=== PATIENT | female | born 1955 | race Caucasian/White ===

== ENCOUNTER 2016-09-02 18:00 | Emergency (ER) | payer MEDICAID, OTHER ==
[2016-09-02] MEDS ORDERED: Sodium Chloride 0.9% 5 ML Syringe FLUSH PRN (18:31)
--- NOTE | 2016-09-02 18:38 | EDM.PDOC ---
ED HISTORY OF PRESENT ILLNESS - General Chief Complaint: Respiratory Problem Stated Complaint: FELL Time Seen by Provider: 09/02/16 18:25 Source of Information: Reports: Patient, EMS History Limitations: Reports: No limitations - History of Present Illness INITIAL COMMENTS - FREE TEXT/NARRATIVE: 61 YO WF presents to ER by EMS after near syncopal episode at home today. Pt reports she has been feeling very tired lately and has had some increasing shortness of breath. Pt denies chest pain, headache or head injury. Pt reports swelling to bilateral lower extremities. Pt with history of peripheral edema and NIDDM- BS on scene was 180's Symptom Onset Date: 09/02/16 Timing/Duration: Reports: Day(s):, Unsure Severity: moderate Improves with: Reports: Movement Worsens with: Reports: Breathing Associated Symptoms (General): Reports: cough, malaise, shortness of breath, syncope, weakness. Denies: chest pain, fever/chills, headaches, nausea/vomiting , rash, seizure - Related Data Allergies/ADRs: Allergies Allergy/AdvReac Type Severity Reaction Status Date / Time Penicillins Allergy Rash Verified 09/02/16 18:36 Home Meds: Home Meds Citalopram Hydrobromide [Citalopram HBr] 20 mg PO DAILY 09/02/16 [History] Diclofenac Sodium [IJD: Diclofenac Sodium] 75 mg PO .TWICE DAILY W MEALS [History] Furosemide [Lasix] 20 mg PO ASDIRECTED 09/02/16 [History] Ibuprofen [Advil Liqui-Gels] 800 mg PO BEDTIME 09/02/16 [History] Iron 65 Plus Vitamin C 125 1 tab PO DAILY 09/02/16 [History] LORazepam 1 mg PO BEDTIME 09/02/16 [History] Omeprazole [Omeprazole] 20 mg PO ACBREAKFAST 09/02/16 [History] Pregabalin [Lyrica] 200 mg PO TID 09/02/16 [History] metFORMIN HCl [Metformin HCl] 500 mg PO BIDMEALS 09/02/16 [History] Past Medical History - Past Health History Medical/Surgical History: Denies Medical/Surgical History Social & Family History - Tobacco Use Smoking Status *Q: Unknown Ever Smoked - Living Situation & Occupation Living situation: Reports: , alone Occupation: disabled ED ROS GENERAL - Review of Systems Review Of Systems: See Below Constitutional: Reports: no symptoms HEENT: Reports: No symptoms Respiratory: Reports: Shortness of Breath Cardiovascular: Reports: Dyspnea on exertion, Edema, PND, Syncope Endocrine: Reports: fatigue GI/Abdominal: Reports: No symptoms : Reports: no symptoms Musculoskeletal: Reports: back pain Neurological: Reports: No Symptoms Psychiatric: Reports: No symptoms Hematologic/Lymphatic: Reports: no symptoms Immunologic: Reports: no symptoms ED EXAM, GENERAL - Physical Exam Exam: See Below Exam Limited By: No limitations General Appearance: alert, WD/WN, lethargic Eye Exam: bilateral eye: EOMI, PERRL Ears: normal external exam, normal canal, hearing grossly normal, normal TMs Nose: normal inspection, normal mucosa, no blood Throat/Mouth: Normal inspection, Normal lips, Normal teeth, Normal gums, Normal oropharynx, Normal voice, No airway compromise Head: atraumatic, normocephalic Neck: normal inspection, supple, non-tender, full range of motion Respiratory/Chest: no respiratory distress, no accessory muscle use, decreased breath sounds, rales Cardiovascular: normal peripheral pulses, regular rate, rhythm. No: no edema GI/Abdominal: normal bowel sounds, soft, non tender, no organomegaly, no distention, no abnormal bruit, no mass Extremities: pedal edema Neurological: alert, oriented, CN II-XII intact, normal cognition, normal gait, normal reflexes, no motor/sensory deficits Psychiatric: normal affect, normal mood Skin Exam: Warm, Dry, Intact, Normal color, No rash Lymphatic: no adenopathy EKG INTERPRETATION EKG Date: 09/02/16 Time: 18:40 Rhythm: NSR Rate (beats/min): 95 [place]: RAD-right axis deviation P-wave: present QRS: RBBB ST-T: normal QT: normal Course - Vital Signs Last Recorded V/S: Last Vital Signs Temp 36.4 C 09/02/16 18:25 Pulse 97 09/02/16 18:25 Resp 20 09/02/16 18:25 BP 119/78 09/02/16 18:25 Pulse Ox 64 L 09/02/16 18:25 - Orders/Labs/Meds Orders: Active Orders 24 hr Category Date Time Status EKG Documentation Completion [RC] ASDIRECTED Care 09/02/16 18:31 Active Peripheral IV Care [RC] . DIRECTED Care 09/02/16 18:31 Active Chest 1V Frontal [CR] Stat Exams 09/02/16 18:31 Taken Head wo Cont [CT] Stat Exams 09/02/16 20:17 Taken Nitroglycerin [Nitro-Dur 0.4 MG/Hr] Med 09/02/16 19:15 Active 0.4 mg TRDERM DAILY Sodium Chloride 0.9% [Syrex Flush] Med 09/02/16 18:31 Active 5 ml FLUSH Q8HR PRN Peripheral IV Insertion Adult [OM.PC] Routine Oth 09/02/16 18:31 Ordered EKG 12 Lead [EK] Routine Ther 09/02/16 18:31 Ordered Medication Orders Nitroglycerin (Nitro-Dur 0.4 Mg/Hr) 0.4 mg TRDERM DAILY ERNESTO Last Admin: 09/02/16 19:57 Dose: Sodium Chloride (Syrex Flush) 5 ml FLUSH Q8HR PRN PRN Reason: Keep Vein Open Labs: Laboratory Tests 09/02/16 09/02/16 09/02/16 Range/Units 18:25 18:25 18:25 WBC 9.1 (5.0-10.0) 10^3/uL RBC 5.50 (3.80-5.50) 10^6/uL Hgb 17.3 H (12.0-16.0) g/dL Hct 52.9 H (37.0-47.0) % MCV 96.2 H (82.0-92.0) fL MCH 31.4 H (27.0-31.0) pg MCHC 32.7 (32.0-36.0) g/dL RDW 15.7 H (11.5-14.5) % Plt Count 112 L (150-300) 10^3/uL MPV 10.0 (7.4-10.4) fL Neut % (Auto) 83.7 H (50.0-70.0) % Lymph % (Auto) 8.3 L (20.0-40.0) % [place] % (Auto) 7.4 (2.0-8.0) % Eos % (Auto) 0.6 L (1.0-3.0) % Baso % (Auto) 0.0 (0.0-1.0) % Neut # (Auto) 7.5 H (2.5-7.0) 10^3/uL Lymph # (Auto) 0.8 L (1.0-4.0) 10^3/uL [place] # (Auto) 0.7 (0.1-0.8) 10^3/uL Eos # (Auto) 0.1 (0.1-0.3) 10^3/uL Baso # (Auto) 0.0 (0.0-0.1) 10^3/uL PT 12.1 H (8.9-11.4) SEC INR 1.2 H (0.9-1.1) APTT 23.0 (20.8-31.2) SEC Sodium 142 (136-145) mmol/L Potassium 5.0 (3.3-5.3) mmol/L Chloride 103 (98-115) mmol/L Carbon Dioxide 31.5 (21.0-32.0) mmol/L BUN 26 H (6-25) mg/dL Creatinine 1.11 (0.51-1.17) mg/dL Est Cr Clr Drug Dosing 45.08 mL/min Estimated GFR (MDRD) 50 mL/min Glucose 136 H (70-110) mg/dL Calcium 10.0 (8.7-10.3) mg/dL Total Bilirubin 2.0 H (0.2-1.0) mg/dL AST 146 H (15-37) U/L ALT 90 H (12-78) U/L Alkaline Phosphatase 113 (46-116) IU/L Creatine Kinase 255 (26-276) U/L CK-MB (CK-2) 14.60 H* (0.00-4.30) ng/mL Troponin I 0.82 H* (0.00-0.070) ng/mL B-Natriuretic Peptide 660 H (0-100) pg/mL Total Protein 7.3 (6.4-8.2) g/dL Albumin 3.71 (3.00-4.80) g/dL Meds: Medications Generic Name Dose Route Start Last Admin Trade Name Freq PRN Reason Stop Dose Admin Nitroglycerin 0.4 mg 09/02/16 19:15 09/02/16 19:57 Nitro-Dur 0.4 Mg/Hr TRDERM Not Given DAILY ERNESTO Sodium Chloride 5 ml 09/02/16 18:31 Syrex Flush FLUSH Q8HR PRN Keep Vein Open Discontinued Medications Generic Name Dose Route Start Last Admin Trade Name Freq PRN Reason Stop Dose Admin Aspirin 324 mg 09/02/16 19:11 09/02/16 19:25 Aspirin PO 09/02/16 19:12 324 mg ONETIME ONE Administration Nitroglycerin 1 gm 09/02/16 19:25 09/02/16 19:28 Nitro-Bid 2% TOP 09/02/16 19:26 1 gm ONETIME ONE Administration - Radiology Interpretation Free Text/Narrative:: CXR- NAD; CM Departure - Departure Time of Disposition: 20:01 Disposition: DC/Tfer to Acute Hospital 02 Condition: critical Clinical Impression: Hypoxia Acute myocardial infarction Qualifiers: Myocardial infarction ST status: non-ST elevation myocardial infarction Qualified Code(s): I21.4 - Non-ST elevation (NSTEMI) myocardial infarction Pulmonary edema Qualifiers: Chronicity: acute Qualified Code(s): J81.0 - Acute pulmonary edema Referrals: Christopher Red PA-C [Primary Care Provider] - Forms: Interfacility Transfer EMTALA - My Orders Last 24 Hours: My Active Orders 09/02/16 18:31 EKG Documentation Completion [RC] ASDIRECTED Peripheral IV Care [RC] . DIRECTED Chest 1V Frontal [CR] Stat Sodium Chloride 0.9% [Syrex Flush] 5 ml FLUSH Q8HR PRN Peripheral IV Insertion Adult [OM.PC] Routine EKG 12 Lead [EK] Routine 09/02/16 19:15 Nitroglycerin [Nitro-Dur 0.4 MG/Hr] 0.4 mg TRDERM DAILY 09/02/16 20:17 Head wo Cont [CT] Stat - Assessment/Plan Last 24 Hours: My Active Orders 09/02/16 18:31 EKG Documentation Completion [RC] ASDIRECTED Peripheral IV Care [RC] . DIRECTED Chest 1V Frontal [CR] Stat Sodium Chloride 0.9% [Syrex Flush] 5 ml FLUSH Q8HR PRN Peripheral IV Insertion Adult [OM.PC] Routine EKG 12 Lead [EK] Routine 09/02/16 19:15 Nitroglycerin [Nitro-Dur 0.4 MG/Hr] 0.4 mg TRDERM DAILY 09/02/16 20:17 Head wo Cont [CT] Stat Assessment:: 1. hypoxia 2. NSTEMI 3. pulmonary edema 4. NIDDM 5. Tobacco use Plan: 1. discussed case with Dr Ramirez- cardiology who accepted pt for transfer for further evaluation and treatment 2. transfer by ALS ground to [facility]
[2016-09-02] MEDS ORDERED: Aspirin 81 MG Tab.Chew PO ONE (19:11)
[2016-09-02] MEDS ORDERED: Nitroglycerin 2% Oint 1 GM UD Packet TOP ONE (19:25)
[2016-09-02] MEDS: Nitroglycerin 0.4 MG/HR Transdermal Patch TRDERM SCH ×2 (19:28→19:57)
[2016-09-03 00:17] VITALS: BP 125/99
== END 2016-09-02 20:40 ==
LOC: KA.ED 18:00
DX: I21.4 Non-ST elevation (NSTEMI) myocardial infarction (principal); R09.02 Hypoxemia; J81.0 Acute pulmonary edema; Z88.0 Allergy status to penicillin; Z79.899 Other long term (current) drug therapy
CPT/HCPCS: 36415; 70450; 71010; 80053; 82550; 82553; 83880; 84484; 85025; 85610; 85730; 99285; A9270; 93005

== ENCOUNTER 2017-01-08 10:31 | Inpatient (IN) | payer MEDICAID ==
--- NOTE | 2017-01-08 11:24 | EDM.PDOC ---
ED HPI GENERAL MEDICAL PROBLEM - General Chief Complaint: General Stated Complaint: WEAKNESS Time Seen by Provider: 01/08/17 11:12 Source of Information: Reports: Patient History Limitations: Reports: No Limitations - History of Present Illness INITIAL COMMENTS - FREE TEXT/NARRATIVE: PT STATES SHE HAS BEEN FEELING WEAK OVER PAST FEW DAYS AND HAS FALLEN 3 TIMES. HAVING HARD TIME BREATHING AND FEELS LIKE FACE IS SWELLING. LIVES ALONE AND DOES NOT HAVE CAREGIVER. DENIES CP, ABD PAIN, FEVER, N/V/D, NEGRON, BLURRY VISION, BRUISING, OR RECENT EXTREMITY EDEMA. LAST SEEN BY PCP 11/13/16 Duration: Day(s): Severity: Mild Improves with: Reports: None Worsens with: Reports: None Associated Symptoms: Reports: Shortness of Breath. Denies: Chest Pain, Headaches, Nausea/Vomiting Treatments [employer]: Reports: Aspirin, Oxygen - Related Data Allergies Allergy/AdvReac Type Severity Reaction Status Date / Time Penicillins Allergy Rash Verified 01/08/17 11:32 Home Meds: Home Meds Citalopram Hydrobromide [Citalopram HBr] 20 mg PO DAILY 09/02/16 [History] Ibuprofen [Advil Liqui-Gels] 800 mg PO BEDTIME 09/02/16 [History] Iron 65 Plus Vitamin C 125 1 tab PO DAILY 09/02/16 [History] Omeprazole [Omeprazole] 20 mg PO ACBREAKFAST 09/02/16 [History] Pregabalin [Lyrica] 200 mg PO TID 09/02/16 [History] Arformoterol [Brovana] 15 mcg INH BID 01/08/17 [History] Aspirin 81 mg PO DAILY 01/08/17 [History] Budesonide [Pulmicort] 2 ml INH BID 01/08/17 [History] Calcium Carbonate/Vitamin D3 [Calcium 500-Vit D3 200 [place]] 1 tab PO DAILY [History] Cholecalciferol (Vitamin D3) [Vitamin D3] 2,000 unit PO DAILY 01/08/17 [History] Ipratropium [Atrovent] 2.5 ml INH QID PRN 01/08/17 [History] Multivits w-Fe,Other Min/Lut [Theratrum Complete] 1 tab PO DAILY 01/08/17 [ History] Nicotine [Nicotine Patch] 21 mg TOP DAILY 01/08/17 [History] Roflumilast [Daliresp] 500 mcg PO DAILY 01/08/17 [History] Tiotropium [place] [Spiriva Respimat] 2.5 mg INH DAILY 01/08/17 [History] traZODone 50 mg PO BEDTIME 01/08/17 [History] Past Medical History - Past Health History Medical/Surgical History: Denies Medical/Surgical History Cardiovascular History: Reports: Heart Failure Respiratory History: Reports: COPD Gastrointestinal History: Reports: None Musculoskeletal History: Reports: Back Pain, Chronic, Osteoarthritis Psychiatric History: Reports: Anxiety, Depression Endocrine/Metabolic History: Reports: Diabetes, Type I, Obesity/BMI 30+ Dermatologic History: Reports: Other (See Below) Other Dermatologic History: NUMEROUS SCABBED AREAS ON SKIN , FEET IN POOR CONDITION - Infectious Disease History Infectious Disease History: Reports: None - Past Surgical History Endocrine Surgical History: Reports: Other (See Below) Social & Family History - Tobacco Use Smoking Status *Q: Unknown Ever Smoked Years of Tobacco use: 35 Packs/Tins Daily: 1.5 Used Tobacco, but Quit: No Second Hand Smoke Exposure: Yes - Caffeine Use Caffeine Use: Reports: Coffee, Soda - Recreational Drug Use Recreational Drug Use: No - Living Situation & Occupation Living situation: Reports: , Alone Occupation: Disabled ED ROS GENERAL - Review of Systems Review Of Systems: ROS reveals no pertinent complaints other than HPI. Constitutional: Reports: Weakness HEENT: Reports: No Symptoms Respiratory: Reports: Shortness of Breath Cardiovascular: Reports: No Symptoms Endocrine: Reports: No Symptoms GI/Abdominal: Reports: No Symptoms : Reports: No Symptoms Musculoskeletal: Reports: No Symptoms Skin: Reports: No Symptoms Neurological: Reports: No Symptoms Psychiatric: Reports: No Symptoms Hematologic/Lymphatic: Reports: No Symptoms Immunologic: Reports: No Symptoms ED EXAM, GENERAL - Physical Exam Exam: See Below Exam Limited By: No Limitations General Appearance: Alert, WD/WN, No Apparent Distress Ears: Normal External Exam, Normal Canal Nose: Normal Inspection, Normal Mucosa, No Blood Throat/Mouth: Normal Inspection, Normal Oropharynx, No Airway Compromise Head: Atraumatic, Normocephalic Neck: Normal Inspection, Supple, Non-Tender Respiratory/Chest: No Respiratory Distress, Decreased Breath Sounds (THROUGH OUT ) Cardiovascular: Regular Rate, Rhythm, No Murmur GI/Abdominal: Normal Bowel Sounds, Soft, Non-Tender, No Distention, No Abnormal Bruit, No Mass Back Exam: Normal Inspection. No: CVA Tenderness (L), CVA Tenderness (R) Extremities: Non-Tender, Pedal Edema Neurological: Alert, Oriented, CN II-XII Intact, Normal Cognition Psychiatric: Normal Affect, Normal Mood Skin Exam: Warm, Dry, Intact, Normal Color, No Rash Lymphatic: No Adenopathy EKG INTERPRETATION EKG Date: 01/08/17 Time: 11:45 Rhythm: NSR Rate (Beats/Min): 86 ST-T: Other (NONSPECIFIC) Comparison: No Change Course - Vital Signs Last Recorded V/S: Last Vital Signs Temp 98.2 F 01/08/17 10:58 Pulse 85 01/08/17 10:58 Resp 20 01/08/17 10:58 BP 143/68 H 01/08/17 10:58 Pulse Ox 64 L 01/08/17 10:58 - Orders/Labs/Meds Orders: Active Orders 24 hr Category Date Time Status CXR [Chest 2V] [CR] Stat Exams 01/08/17 10:56 Ordered CBC WITH AUTO DIFF [HEME] Stat Lab 01/08/17 10:56 Ordered COMPREHENSIVE METABOLIC PN,CMP [CHEM] Stat Lab 01/08/17 10:56 Ordered UA W/MICROSCOPIC [URIN] Stat Lab 01/08/17 11:12 Uncollected - Radiology Interpretation Free Text/Narrative:: CXR SHOWS LEFT PLEURAL EFFUSION. CT HEAD WITHOUT CONTRAST IS NEGATIVE FOR ACUTE PROCESS - Re-Assessments/Exams Free Text/Narrative Re-Assessment/Exam: 01/08/17 13:26 PT NONTOXIC APPEARING, AFEBRILE, VSS, SAT 92% ON R/A. DISCUSSED CASE WITH DR SCHAFER. WILL ADMIT INPATIENT AND FOLLOW Departure - Departure Time of Disposition: 13:27 Disposition: Admitted As Inpatient 66 Condition: Fair Clinical Impression: Pleural effusion on left, Elevated troponin level, UTI, Urinary tract infectious disease, Hypoxia - Discharge Information Referrals: Christopher Red PA-C [Primary Care Provider] - - My Orders Last 24 Hours: My Active Orders 01/08/17 10:56 CXR [Chest 2V] [CR] Stat CBC WITH AUTO DIFF [HEME] Stat COMPREHENSIVE METABOLIC PN,CMP [CHEM] Stat 01/08/17 11:12 UA W/MICROSCOPIC [URIN] Stat - Assessment/Plan Last 24 Hours: My Active Orders 01/08/17 10:56 CXR [Chest 2V] [CR] Stat CBC WITH AUTO DIFF [HEME] Stat COMPREHENSIVE METABOLIC PN,CMP [CHEM] Stat 01/08/17 11:12 UA W/MICROSCOPIC [URIN] Stat Assessment:: HYPOXIA / ELEVATED TROPONIN
[2017-01-08] MEDS ORDERED: methylPREDNISolone Sodium Succinate 125 MG/2 ML SDV IVPUSH ONE (11:35)
[2017-01-08] MEDS ORDERED: Albuterol/Ipratropium 3.0-0.5 MG/3 ML Neb Soln NEB ONE (11:35)
[2017-01-08 12:16] LABS: CHLORIDE,CL 105 mmol/L (98-115); SODIUM,NA 142 mmol/L (136-145)
[2017-01-08] MEDS ORDERED: cefTRIAXone 1 GM Vial IVPUSH ONE (13:27)
[2017-01-08] MEDS ORDERED: EPINEPHrine 1:10,000 1 MG/10 ML Syringe IVPUSH PRN (16:04)
[2017-01-08] MEDS ORDERED: Nitroglycerin 0.4 MG Tab.SL SL PRN (16:04)
[2017-01-08] MEDS ORDERED: Atropine 0.1 MG/ML 10 ML Syringe IVPUSH PRN (16:04)
[2017-01-08] MEDS ORDERED: Lidocaine 2% 100 MG/5 ML Syringe IVPUSH PRN (16:04)
[2017-01-08] MEDS ORDERED: Ipratropium 0.02% 0.5 MG/2.5 ML Neb Soln INH PRN (17:52)
[2017-01-08] MEDS ORDERED: traZODone 50 MG Tab PO ONE (17:54)
[2017-01-08] MEDS: Arformoterol 15 MCG/2 ML Neb Soln INH SCH (20:02)
[2017-01-08] MEDS ORDERED: Enoxaparin 40 MG/0.4 ML Syringe SUBCUT SCH (20:30)
[2017-01-08] MEDS: Budesonide 0.5 MG/2 ML Neb Susp INH SCH (20:55)
[2017-01-08] MEDS ORDERED: Ibuprofen 400 MG Tab PO SCH (21:00)
[2017-01-08] MEDS: Pregabalin 25 MG Cap PO SCH (21:07)
[2017-01-08] MEDS ORDERED: Furosemide 40 MG/4 ML VIAL IVPUSH ONE (21:42)
[2017-01-08] MEDS: traZODone 50 MG Tab PO SCH (22:14)
[2017-01-09] MEDS: Omeprazole 20 MG Cap.CR PO SCH (06:02)
[2017-01-09 08:05] LABS: CHLORIDE,CL 106 mmol/L (98-115); SODIUM,NA 145 mmol/L (136-145)
--- NOTE | 2017-01-09 08:11 | PN ---
01/08/2017PATIENT NAME: YVETTE ANN PATIENT PROFILE: The patient is a 61-year-old female patient from [place], [place]. This 61-year-old patient presented to the emergency room because of "feeling weak" over the last two days and has fallen three times. She also has had increased difficult time breathing and felt like her face was swelling. She lives alone and does not have a caregiver. Denies any chest pain, abdominal pain, fever, nausea, vomiting, diarrhea, headaches, blurring vision, bruising or recent extremity edema. Was last seen by primary care provider on 11/03/2016. PAST HISTORY: Includes subdural hemorrhage, depression, obesity, respiratory failure, for which she spent almost six weeks at the hospital in [place], COPD, hypertension, hypercalcemia, syncope, and retroperitoneal bleed. ALLERGIES: To penicillin, causing hives. CURRENT MEDICATIONS: Include Lyrica 200 mg one capsule three times a day, tiotropium Spiriva 2.5 mg two puffs once a day, Daliresp 500 mcg one tablet daily, Pulmicort 0.5 mg two times a day, omeprazole 20 mg daily, Celexa 20 mg daily, trazodone 50 mg at bedtime, Brovana 15 mcg a minute by nebulization twice a day, aspirin 81 mg daily, NicoDerm 21 mg daily, vitamin D3 1000 units daily, calcium carbonate one tablet three times a day 500 mg plus vitamin D 200 international units, B complex vitamins daily, and Atrovent 4 times a day as necessary. Additional medications include trazodone 50 mg at bedtime, Lyrica 200 mg three times a day, omeprazole 20 mg a day. PAST SURGICAL HISTORY: Includes cholecystectomy and right ankle fractures. She also had a ventriculostomy, brain surgery, parathyroidectomy, tracheostomy. SOCIAL HISTORY: The patient has been a former smoker, quit in August. She had one pack a day for 50 years. Alcohol 2.5 ounces per week. IMMUNIZATIONS: She has had immunizations of pneumococcal vaccine on 11/13/2016. FAMILY HISTORY: Nil significant. IMPLANTS: Nil. REVIEW OF SYSTEMS: HEAD AND NECK: No complaints. CONSTITUTIONAL: No complaints except for weakness. HEENT: No complaints. RESPIRATORY: Complaints of shortness of breath, mild. Some cough with minimal expectoration. CARDIOVASCULAR: No complaints. ENDOCRINE: No complaints. GI: Abdomen, no complaints. : No complaints. MUSCULOSKELETAL: No complaints except for weakness. SKIN: No complaints. NEUROLOGICAL: No complaints. PSYCHIATRIC: No complaints. HEMATOLOGICAL: Reports no symptoms. IMMUNOLOGICAL: No complaints. PHYSICAL EXAMINATION: GENERAL: Reveals a very pleasant, elderly patient, in a moderate amount of distress. VITAL SIGNS: Temperature 98.2, pulse 85, respirations 20, blood pressure 140/70, oxygen saturation 64%. The patient's chest x-ray was positive for slight left pleural effusion. Head CT was negative. CBC is pending. Comprehensive panel is pending. Troponin is slightly elevated. FINAL DIAGNOSIS: The patient is a 61-year-old patient with, 1. History of falling and weakness. 2. Elevated troponin level to rule out myocardial infarction. 3. History of chronic obstructive pulmonary disease. 4. History of respiratory failure. 5. History of hypotension and hypercalcemia. 6. History of retroperitoneal bleed. 7. History of penicillin allergy. 8. History of subdural hemorrhage. 9. Status post pneumococcal immunization in October 2016. 10.History of status post cholecystectomy, fracture of the ankle, ventriculostomy, brain surgery, parathyroidectomy, tracheostomy. PLAN: Plan will be to admit the patient to hospital. Repeat troponin levels, watch the respiratory status, and monitor progress very carefully. The patient does have left pleural effusion and this has to be monitored. /[id number]/MODL
[2017-01-09] MEDS: Multivitamins with Minerals/Iron/Folic Acid/Lycopene Tab PO SCH (08:32)
[2017-01-09] MEDS: Ferrous Sulfate 325 MG Tab PO SCH (08:32)
[2017-01-09] MEDS: Cholecalciferol (Vitamin D3) 1,000 Unit Tab PO SCH (08:32)
[2017-01-09] MEDS: Nicotine 21 MG/24 Hr Patch TOP SCH (08:32)
[2017-01-09] MEDS: Citalopram 20 MG Tab PO SCH (08:32)
[2017-01-09] MEDS: Calcium Citrate/Vitamin D3 315 MG-250 Unit Tab PO SCH (08:33)
[2017-01-09] MEDS: Pregabalin 25 MG Cap PO SCH (08:41)
[2017-01-09] MEDS: Arformoterol 15 MCG/2 ML Neb Soln INH SCH ×3 (08:42→20:01)
[2017-01-09] MEDS: Aspirin 81 MG Tab.EC PO SCH (08:53)
[2017-01-09] MEDS ORDERED: Roflumilast 500 MCG Tab PO SCH (09:00)
[2017-01-09] MEDS: Budesonide 0.5 MG/2 ML Neb Susp INH SCH ×3 (09:09→20:34)
--- NOTE | 2017-01-09 10:47 | PCM.PN ---
- General Info Date of Service: 01/09/17 Functional Status: Reports: Pain Controlled, Tolerating Diet - Review of Systems General: Reports: Weakness, Fatigue. Denies: Fever - Patient Data Vitals - Most Recent: Last Vital Signs Temp 99.3 F 01/09/17 06:22 Pulse 88 01/09/17 09:41 Resp 20 01/09/17 06:22 BP 110/47 L 01/09/17 06:22 Pulse Ox 95 01/09/17 09:41 Weight - Most Recent: 208 lb 11.2 oz I&O - Last 24 Hours: Intake & Output 01/08/17 01/09/17 01/09/17 22:59 06:59 14:59 Intake Total 270 100 Output Total 100 200 Balance 170 -100 Lab Results Last 24 Hours: Laboratory Results - last 24 hr 01/08/17 01/08/17 01/09/17 Range/Units 18:00 18:00 07:15 Sodium 145 (136-145) mmol/L Potassium 4.0 (3.3-5.3) mmol/L Chloride 106 (98-115) mmol/L Carbon Dioxide 38.5 H (21.0-32.0) mmol/L BUN 22 (6-25) mg/dL Creatinine 0.49 L (0.51-1.17) mg/dL Est Cr Clr Drug Dosing 118.73 mL/min Estimated GFR (MDRD) > 60 mL/min Glucose 90 (70-110) mg/dL Calcium 9.8 (8.7-10.3) mg/dL Total Bilirubin 0.9 (0.2-1.0) mg/dL AST 13 L (15-37) U/L ALT 26 (12-78) U/L Alkaline Phosphatase 70 (46-116) IU/L Troponin I 0.26 H* 0.18 H* (0.00-0.070) ng/mL B-Natriuretic Peptide 347 H (0-100) pg/mL Total Protein 6.3 L (6.4-8.2) g/dL Albumin 3.12 (3.00-4.80) g/dL Med Orders - Current: Current Medications Arformoterol Tartrate (Brovana) 15 mcg INH BID [facility] Last Admin: 01/09/17 08:42 Dose: 15 mcg Aspirin (Halfprin) 81 mg PO DAILY [facility] Last Admin: 01/09/17 08:53 Dose: 81 mg Atropine Sulfate (Atropine 0.1 Mg/Ml) 0 mg IVPUSH ASDIRECTED PRN PRN Reason: Heart Budesonide (Pulmicort) 0.5 mg INH BID [facility] Last Admin: 01/09/17 09:41 Dose: 0.5 mg Calcium Citrate (Calcium Citrate + D) 2 tab PO DAILY [facility] Last Admin: 01/09/17 08:33 Dose: 2 tab Cholecalciferol (Vitamin D3) 2,000 units PO DAILY [facility] Last Admin: 01/09/17 08:32 Dose: 2,000 units Citalopram Hydrobromide (Celexa) 20 mg PO DAILY [facility] Last Admin: 01/09/17 08:32 Dose: 20 mg Epinephrine HCl (Epinephrine 1:10,000) 1 mg IVPUSH ASDIRECTED PRN PRN Reason: Heart Ferrous Sulfate (Ferrous Sulfate) 325 mg PO DAILY [facility] Last Admin: 01/09/17 08:32 Dose: 325 mg Ipratropium [place] (Atrovent) 0.5 mg INH QID PRN PRN Reason: Wheezing Lidocaine HCl (Xylocaine 2%) 0 mg IVPUSH ASDIRECTED PRN PRN Reason: Heart Miscellaneous Information (Remove Patch) 1 ea TRDERM DAILY [facility] Multivitamins/Minerals (Centrum) 1 tab PO DAILY [facility] Last Admin: 01/09/17 08:32 Dose: 1 tab Nicotine (Habitrol) 21 mg TOP DAILY [facility] Last Admin: 01/09/17 08:32 Dose: 21 mg Nitroglycerin (Nitrostat) 0.4 mg SL ASDIRECTED PRN PRN Reason: Heart Omeprazole (Omeprazole) 20 mg PO ACBREAKFAST [facility] Last Admin: 01/09/17 06:02 Dose: 20 mg Pregabalin (Lyrica) 200 mg PO BEDTIME [facility] Roflumilast (Daliresp) 500 mcg PO DAILY [facility] Trazodone HCl (Trazodone) 50 mg PO BEDTIME [facility] Last Admin: 01/08/17 22:14 Dose: 50 mg Discontinued Medications Albuterol/Ipratropium (Duoneb 3.0-0.5 Mg/3 Ml) 3 ml NEB ONETIME ONE Stop: 01/08/17 11:36 Last Admin: 01/08/17 12:03 Dose: 3 ml Arformoterol Tartrate (Brovana) 15 mcg INH BIDRT [facility] Last Admin: 01/09/17 09:09 Dose: Not Given Budesonide (Pulmicort) 0.5 mg INH BIDRT [facility] Last Admin: 01/09/17 09:09 Dose: Not Given Ceftriaxone Sodium (Rocephin) 1 gm IVPUSH ONETIME ONE Stop: 01/08/17 13:28 Last Admin: 01/08/17 14:40 Dose: 1 gm Enoxaparin Sodium (Lovenox) 45 mg SUBCUT Q12HR [facility] Furosemide (Lasix) 20 mg IVPUSH NOW ONE Stop: 01/08/17 21:43 Last Admin: 01/08/17 22:16 Dose: 20 mg Ibuprofen (Motrin) 800 mg PO BEDTIME [facility] Methylprednisolone Sodium Succinate (Solu-Medrol) 125 mg IVPUSH ONETIME ONE Stop: 01/08/17 11:36 Last Admin: 01/08/17 12:01 Dose: 125 mg Pregabalin (Lyrica) 200 mg PO TID [facility] Last Admin: 01/09/17 08:41 Dose: Not Given Trazodone HCl (Trazodone) 50 mg PO ONETIME ONE Stop: 01/08/17 17:55 Last Admin: 01/08/17 23:20 Dose: Not Given - Exam Quality Assessment: Supplemental Oxygen General: Alert, Mild Distress HEENT: Pupils Equal Neck: Supple Lungs: Decreased Breath Sounds Cardiovascular: Regular Rate, Regular Rhythm GI/Abdominal Exam: Soft Back Exam: No: CVA Tenderness (L), CVA Tenderness (R) Extremities: No Pedal Edema Psy/Mental Status: Alert, Normal Affect, Labile Mood - Problem List Review Problem List Initiated/Reviewed/Updated: Yes - My Orders Last 24 Hours: My Active Orders 01/08/17 21:30 traZODone 50 mg PO BEDTIME - Plan Plan:: BRIEF HISTORY 61-year-old female with significant and multiple comorbidities was admitted through the ED yesterday via ambulance when she started becoming weak over the past few days with frequent falls. She also had more difficulty with shortness of breath. She denies chest pains or any GI type symptoms. Complains of being very fatigued with edematous face. She was noted in the ED she had elevated troponin and was placed on telemetry and was admitted to the hospital in acute inpatient status. Patient's significant recent history includes recent ARDS subsequent tracheostomy with hemorrhagic shock due to a left retroperitoneal hematoma while on Lovenox, PEG tube, septic shock with non-STEMI September 2016, was placed in LTAC for lengthy period of time. Pertinent diagnostics this admission Head CT, no acute findings, however chronic small vessel ischemia Chest x-ray, pleural effusion left-sided slightly improved since August 2016 image EKG, evidence of LVH, no ST elevation, will repeat CODE STATUS, full code Primary impression Myocardial infarction, non-STEMI, troponins trending down, telemetry. Mean O2 pressure adequate, Lovenox held due to low platelets, will add an start selective beta blockers. On ASA. BNP elevated last night day 20 mg IV Lasix 1. Review EKG, some symmetrical T-wave abnormality will repeat COPD, Brovana and Pulmicort nebulizers twice a day. Continue with Spiriva, Daliresp, O2, prednisone 60 mg orally today, monitor carefully since starting beta blockers Hypercalcemia, now normal, likely resorption. Pleural effusion, left, incentive spirometer, Lasix 1 today. Frequent falls, will place in PT consult due to likely deconditioning however likely after troponin trends down Chronic comorbidities Obesity, peripheral neuropathy, Continue with Lyrica GERD, PPI; Depression, fairly stable, Celexa Insomnia, trazodone PRN History of [place], aspirin, currently not on BB therapy Tobacco dependency, NicoDerm patch, encouraged patient to stop smoking. Osteopenia, continue with vitamin D3 2000 units daily. Health maintenance, received Prevnar 07 November 2016
[2017-01-09] MEDS ORDERED: Furosemide 40 MG/4 ML VIAL IV ONE (11:30)
[2017-01-09] MEDS: Metoprolol Tartrate 25 MG Tab PO SCH ×2 (12:06→20:05)
[2017-01-09] MEDS: predniSONE 20 MG Tab PO SCH (12:06)
[2017-01-09] MEDS: Tiotropium Inhaler 18 MCG Inhalation Powder Cap Kit of 5 INH SCH ×2 (12:33→12:35)
[2017-01-09] MEDS: cefTRIAXone 1 GM Vial IVPUSH SCH (14:36)
[2017-01-09] MEDS: Acetaminophen 325 MG Tab PO PRN (19:53)
[2017-01-09] MEDS: Pregabalin 100 MG Cap PO SCH (20:05)
[2017-01-09] MEDS: traZODone 50 MG Tab PO SCH (20:05)
[2017-01-10] MEDS: Acetaminophen 325 MG Tab PO PRN (03:32)
[2017-01-10] MEDS: Omeprazole 20 MG Cap.CR PO SCH (06:18)
[2017-01-10 07:57] LABS: CHLORIDE,CL 104 mmol/L (98-115); SODIUM,NA 144 mmol/L (136-145)
[2017-01-10] MEDS: Calcium Citrate/Vitamin D3 315 MG-250 Unit Tab PO SCH (08:16)
[2017-01-10] MEDS: Ferrous Sulfate 325 MG Tab PO SCH (08:16)
[2017-01-10] MEDS: Multivitamins with Minerals/Iron/Folic Acid/Lycopene Tab PO SCH (08:16)
[2017-01-10] MEDS: predniSONE 20 MG Tab PO SCH (08:16)
[2017-01-10] MEDS: Cholecalciferol (Vitamin D3) 1,000 Unit Tab PO SCH (08:16)
[2017-01-10] MEDS: Citalopram 20 MG Tab PO SCH (08:17)
[2017-01-10] MEDS: Aspirin 81 MG Tab.EC PO SCH (08:17)
[2017-01-10] MEDS: Metoprolol Tartrate 25 MG Tab PO SCH ×2 (08:20→20:32)
[2017-01-10] MEDS: Nicotine 21 MG/24 Hr Patch TOP SCH (08:21)
[2017-01-10] MEDS: Arformoterol 15 MCG/2 ML Neb Soln INH SCH ×2 (08:23→20:10)
[2017-01-10] MEDS: Budesonide 0.5 MG/2 ML Neb Susp INH SCH ×2 (08:43→20:32)
--- NOTE | 2017-01-10 11:55 | PCM.PN ---
- General Info Date of Service: 01/10/17 Subjective Update: Ms. Carreno states that she feels a little bit better today than she did on admission with regard to her breathing and weakness, but not as good as she did a week or two ago prior to admission. She states that she has realized over the past few days that she has become much weaker than when she was discharged from the [facility] in [place]. She currently has no new complaints, and specifically denies any fever, chest pain, palpitations, worsening shortness of breath, orthopnea, recurrent dysuria, or abdominal pain. Nursing reports that she has been fairly difficult to convince to get up to the chair and even sit up in bed during the day. - Patient Data Vitals - Most Recent: Last Vital Signs Temp 37.1 C 01/10/17 06:39 Pulse 61 01/10/17 08:20 Resp 16 01/10/17 06:39 BP 137/61 01/10/17 08:20 Pulse Ox 98 01/10/17 06:39 Weight - Most Recent: 94.665 kg I&O - Last 24 Hours: Intake & Output 01/09/17 01/10/17 01/10/17 22:59 06:59 14:59 Intake Total 0 200 Output Total 200 Balance -200 200 Lab Results Last 24 Hours: Laboratory Results - last 24 hr 01/10/17 01/10/17 Range/Units 07:20 07:20 WBC 5.9 (5.0-10.0) 10^3/uL RBC 4.49 (3.80-5.50) 10^6/uL Hgb 13.9 (12.0-16.0) g/dL Hct 43.2 (37.0-47.0) % MCV 96.3 H (82.0-92.0) fL MCH 31.0 (27.0-31.0) pg MCHC 32.2 (32.0-36.0) g/dL RDW 14.7 H (11.5-14.5) % Plt Count 90 L (150-300) 10^3/uL MPV 9.9 (7.4-10.4) fL Neut % (Auto) 69.6 (50.0-70.0) % Lymph % (Auto) 22.5 (20.0-40.0) % [place] % (Auto) 6.9 (2.0-8.0) % Eos % (Auto) 0.9 L (1.0-3.0) % Baso % (Auto) 0.1 (0.0-1.0) % Neut # (Auto) 4.1 (2.5-7.0) 10^3/uL Lymph # (Auto) 1.3 (1.0-4.0) 10^3/uL Spink # (Auto) 0.4 (0.1-0.8) 10^3/uL Eos # (Auto) 0.1 (0.1-0.3) 10^3/uL Baso # (Auto) 0.0 (0.0-0.1) 10^3/uL Sodium 144 (136-145) mmol/L Potassium 3.9 (3.3-5.3) mmol/L Chloride 104 (98-115) mmol/L Carbon Dioxide 40.4 H (21.0-32.0) mmol/L BUN 24 (6-25) mg/dL Creatinine 0.44 L (0.51-1.17) mg/dL Est Cr Clr Drug Dosing 132.22 mL/min Estimated GFR (MDRD) > 60 mL/min Glucose 106 (70-110) mg/dL Calcium 10.5 H (8.7-10.3) mg/dL Med Orders - Current: Current Medications Acetaminophen (Tylenol Extra Strength) 1,000 mg PO Q6H PRN PRN Reason: Pain Arformoterol Tartrate (Brovana) 15 mcg INH BID [facility] Last Admin: 01/10/17 08:23 Dose: 15 mcg Aspirin (Halfprin) 81 mg PO DAILY [facility] Last Admin: 01/10/17 08:17 Dose: 81 mg Atorvastatin Calcium (Lipitor) 40 mg PO BEDTIME [facility] Atropine Sulfate (Atropine 0.1 Mg/Ml) 0 mg IVPUSH ASDIRECTED PRN PRN Reason: Heart Budesonide (Pulmicort) 0.5 mg INH BID [facility] Last Admin: 01/10/17 08:43 Dose: 0.5 mg Calcium Citrate (Calcium Citrate + D) 2 tab PO DAILY [facility] Last Admin: 01/10/17 08:16 Dose: 2 tab Ceftriaxone Sodium (Rocephin) 1 gm IVPUSH Q24H [facility] Last Admin: 01/09/17 14:36 Dose: 1 gm Cholecalciferol (Vitamin D3) 2,000 units PO DAILY [facility] Last Admin: 01/10/17 08:16 Dose: 2,000 units Citalopram Hydrobromide (Celexa) 20 mg PO DAILY [facility] Last Admin: 01/10/17 08:17 Dose: 20 mg Epinephrine HCl (Epinephrine 1:10,000) 1 mg IVPUSH ASDIRECTED PRN PRN Reason: Heart Ferrous Sulfate (Ferrous Sulfate) 325 mg PO DAILY [facility] Last Admin: 01/10/17 08:16 Dose: 325 mg Ipratropium [place] (Atrovent) 0.5 mg INH QID PRN PRN Reason: Wheezing Lidocaine HCl (Xylocaine 2%) 0 mg IVPUSH ASDIRECTED PRN PRN Reason: Heart Metoprolol Tartrate (Lopressor) 12.5 mg PO BID [facility] Last Admin: 01/10/17 08:20 Dose: 12.5 mg Miscellaneous Information (Remove Patch) 1 ea TRDERM DAILY [facility] Last Admin: 01/10/17 08:29 Dose: 1 ea Multivitamins/Minerals (Centrum) 1 tab PO DAILY [facility] Last Admin: 01/10/17 08:16 Dose: 1 tab Multivitamins/Minerals (Centrum) 1 tab PO DAILY [facility] Nicotine (Habitrol) 21 mg TOP DAILY [facility] Last Admin: 01/10/17 08:21 Dose: 21 mg Nitroglycerin (Nitrostat) 0.4 mg SL ASDIRECTED PRN PRN Reason: Heart Omeprazole (Omeprazole) 20 mg PO ACBREAKFAST [facility] Last Admin: 01/10/17 06:18 Dose: 20 mg Prednisone (Prednisone) 60 mg PO WITHBREAKFAST [facility] Last Admin: 01/10/17 08:16 Dose: 60 mg Pregabalin (Lyrica) 200 mg PO BEDTIME [facility] Last Admin: 01/09/17 20:05 Dose: 200 mg Trazodone HCl (Trazodone) 50 mg PO BEDTIME [facility] Last Admin: 01/09/17 20:05 Dose: 50 mg Discontinued Medications Acetaminophen (Tylenol) 650 mg PO Q6H PRN PRN Reason: Pain Last Admin: 01/10/17 03:32 Dose: 650 mg Albuterol/Ipratropium (Duoneb 3.0-0.5 Mg/3 Ml) 3 ml NEB ONETIME ONE Stop: 01/08/17 11:36 Last Admin: 01/08/17 12:03 Dose: 3 ml Arformoterol Tartrate (Brovana) 15 mcg INH BIDRT [facility] Last Admin: 01/09/17 09:09 Dose: Not Given Budesonide (Pulmicort) 0.5 mg INH BIDRT [facility] Last Admin: 01/09/17 09:09 Dose: Not Given Ceftriaxone Sodium (Rocephin) 1 gm IVPUSH ONETIME ONE Stop: 01/08/17 13:28 Last Admin: 01/08/17 14:40 Dose: 1 gm Enoxaparin Sodium (Lovenox) 45 mg SUBCUT Q12HR [facility] Furosemide (Lasix) 20 mg IVPUSH NOW ONE Stop: 01/08/17 21:43 Last Admin: 01/08/17 22:16 Dose: 20 mg Furosemide (Lasix) 20 mg IV ONETIME ONE Stop: 01/09/17 11:31 Last Admin: 01/09/17 12:06 Dose: 20 mg Ibuprofen (Motrin) 800 mg PO BEDTIME [facility] Methylprednisolone Sodium Succinate (Solu-Medrol) 125 mg IVPUSH ONETIME ONE Stop: 01/08/17 11:36 Last Admin: 01/08/17 12:01 Dose: 125 mg Pregabalin (Lyrica) 200 mg PO TID [facility] Last Admin: 01/09/17 08:41 Dose: Not Given Roflumilast (Daliresp) 500 mcg PO DAILY [facility] Last Admin: 01/09/17 15:01 Dose: Not Given Tiotropium [place] (Spiriva [place]er) 0 mcg INH DAILY [facility] Last Admin: 01/09/17 12:35 Dose: Not Given Trazodone HCl (Trazodone) 50 mg PO ONETIME ONE Stop: 01/08/17 17:55 Last Admin: 01/08/17 23:20 Dose: Not Given - Exam Physical Findings Comments:: GENERAL: Chronically ill-appearing adult white female appearing older than stated age in no acute distress. HEENT: Conjunctiva clearMucous membranes moist. NECK: Supple, no lymphadenopathy CV: Regular rate and rhythm, no murmurs, rubs, or gallops. 2+ radial pulses. PULMONARY: Normal effort, poor air movement throughout with minimal air movement in bilateral bases, but no wheezes, rales, or rhonchi. ABDOMEN: Positive bowel sounds, soft, nontender, nondistended. EXTREMITIES: Trace edema of bilateral ankles to distal lazcano. NEUROLOGICAL: No obvious deficits. DERMATOLOGIC: No rashes or suspicious lesions in exposed areas. PSYCHIATRIC: Alert, interactive, appropriate affect. - Problem List Review Problem List Initiated/Reviewed/Updated: Yes - My Orders Last 24 Hours: My Active Orders 01/10/17 10:56 Acetaminophen [Tylenol Extra Strength] 1,000 mg PO Q6H PRN 01/10/17 10:59 EKG 12 Lead [EK] Routine 01/10/17 11:00 EKG Documentation Completion [RC] ASDIRECTED 01/10/17 11:03 Weight Daily [Height and Weight] [RC] DAILY PT Evaluation and Treatment [CONS] Routine 01/10/17 11:30 atorvaSTATin [Lipitor] 40 mg PO BEDTIME 01/10/17 11:32 Antiembolic Devices [RC] PER UNIT ROUTINE SCD [Sequential Compression Device] [OM.PC] Routine 01/11/17 05:11 CBC WITH AUTO DIFF [HEME] AM CMP [COMPREHENSIVE METABOLIC PN,CMP] [CHEM] AM FOLATE [REF] Routine HEPATITIS C AB [REF] Routine HIV 1,2 AB/AG COMBO SCREEN [REF] Routine VITAMIN B12 [REF] Routine 01/11/17 09:00 FA/Lycopene/Lut/MV,Ca,Iron,Min [Centrum] 1 tab PO DAILY 01/12/17 05:11 Chest 2V [CR] AM - Plan Plan:: Ms. Carreno is a 61yoF with history significant for diastolic heart failure, COPD, chronic hypoxic respiratory failure, and complex recent past medical history including acute hospitalization for NSTEMI in 08/2016 which was complicated by hemorrhagic shock due to a left retroperitoneal hematoma developed while on Lovenox followed by a prolonged stay at [facility] with tracheostomy due to ARDS, who was admitted 01/08/17 from the ED for an elevated troponin. Hospitalization problems: # NSTEMI: No chest pain or anginal equivalent symptoms. Troponin downtrended. EKG without ST elevation. Telemetry without abnormalities. Has a hx of NSTEMI in August 2016 as well, but has not had stress test or angiogram. ASA continued, BB was started 01/09, and statin will be started today. Not a good candidate for dual antiplatelet therapy or anticoagulation given prior retroperitoneal hemorrhage on Lovenox. Continue telemetry. Recommend outpatient stress test. # Acute on chronic diastolic heart failure: Initial symptoms of volume overload and pleural effusion on XR chest. Last echo 09/02/16 with normal systolic function, but dilated right ventricle and reduced RVSF as well as mild pulmonary hypertension. She has received Lasix 20mg IV the last 2 days with good diuresis and declines wanting to receive any diuretics today. Reassuring cardiopulmonary and fluid status today, so will attempt to transition to po Lasix tomorrow. Monitor daily weight and I/O. # Chronic hypoxic respiratory failure: Oxygen now at baseline of 3.5lpm. # COPD with acute exacerbation: Improved pulmonary status. No wheezing on exam today. Continue prednisone burst day 3, Brovana, and Pulmicort, in addition to DuoNebs as needed. # UTI: Symptoms resolved. Afebrile and WBC normal. Continue ceftriaxone day 3, with plan to transition to po tomorrow. # Thrombocytopenia: Plt uptrending today. No evidence of bleeding. Likely related to infection, but no hx of HIV or hepatitis C assessment, so will obtain. Recheck CBC tomorrow. # Macrocytosis: Normal H/H, but slight macrocytosis. Hx of alcoholism, but no recent folate or B12 assessment, so will obtain. Recheck CBC tomorrow. # Debility: Chronic issue with recent worsening over the last month with frequent falls. PT consult placed for evaluation Thursday. Possible swing bed rehabilitation candidate. Chronic conditions related to management: # GERD: Stable. Continue PPI. # Osteopenia: Continue Ca/vitD supplementation. # Peripheral neuropathy: Stable. Continue Lyrica. # Depression: Stable. Continue Celexa. # Insomnia: Stable. Continue Trazodone. # Tobacco dependence: Pre-contemplative stage of change. Continue nicotine patch. Hospitalization details: # FEN: No IVF. Electrolytes normal; recheck tomorrow. Cardiac diet. # PPX: DVT ppx with SCDs, given contraindication to pharmacologic ppx due to prior retroperitoneal bleed from Lovenox. # Code status: FULL CODE. # Emergency contact: . # Disposition: Continue on Medical-Surgical unit. Anticipate possible discharge to swing bed on 01/12 pending clinical course and PT evaluation.
[2017-01-10] MEDS: Acetaminophen 500 MG Tab PO PRN ×3 (12:04→23:14)
[2017-01-10] MEDS: atorvaSTATin 40 MG Tab PO SCH ×2 (12:17→20:31)
[2017-01-10] MEDS: cefTRIAXone 1 GM Vial IVPUSH SCH (14:42)
[2017-01-10] MEDS: Pregabalin 100 MG Cap PO SCH (20:31)
[2017-01-10] MEDS: traZODone 50 MG Tab PO SCH (20:32)
[2017-01-11] MEDS: Omeprazole 20 MG Cap.CR PO SCH (06:10)
[2017-01-11] MEDS: Acetaminophen 500 MG Tab PO PRN ×3 (08:02→20:11)
[2017-01-11 08:09] LABS: CHLORIDE,CL 105 mmol/L (98-115); SODIUM,NA 144 mmol/L (136-145)
[2017-01-11] MEDS: Citalopram 20 MG Tab PO SCH (08:10)
[2017-01-11] MEDS: predniSONE 20 MG Tab PO SCH (08:10)
[2017-01-11] MEDS: Calcium Citrate/Vitamin D3 315 MG-250 Unit Tab PO SCH (08:10)
[2017-01-11] MEDS: Aspirin 81 MG Tab.EC PO SCH (08:11)
[2017-01-11] MEDS: Multivitamins with Minerals/Iron/Folic Acid/Lycopene Tab PO SCH (08:11)
[2017-01-11] MEDS: Nicotine 21 MG/24 Hr Patch TOP SCH (08:11)
[2017-01-11] MEDS: Cholecalciferol (Vitamin D3) 1,000 Unit Tab PO SCH (08:12)
[2017-01-11] MEDS: Metoprolol Tartrate 25 MG Tab PO SCH ×2 (08:14→20:13)
[2017-01-11] MEDS: Arformoterol 15 MCG/2 ML Neb Soln INH SCH ×2 (08:20→20:17)
[2017-01-11] MEDS: Budesonide 0.5 MG/2 ML Neb Susp INH SCH ×2 (08:34→21:05)
[2017-01-11] MEDS ORDERED: Multivitamins with Minerals/Iron/Folic Acid/Lycopene Tab PO SCH (09:00)
--- NOTE | 2017-01-11 10:47 | PCM.PN ---
- General Info Date of Service: 01/11/17 Subjective Update: Ms. Carreno states that she feels "OK" today, but doesn't have much energy because she didn't go to sleep until late in the night. She just wants to sleep. Continues to be in bed most of the day and not get up to the chair or ambulate much. Refused compression stockings and SCDs yesterday. Continues to have chronic shortness of breath, though improved since admission. She currently has no new complaints, and specifically denies any fever, chest pain, palpitations, orthopnea, recurrent dysuria, or abdominal pain. - Patient Data Vitals - Most Recent: Last Vital Signs Temp 36.6 C 01/11/17 06:21 Pulse 62 01/11/17 08:14 Resp 18 01/11/17 06:21 BP 140/69 01/11/17 08:14 Pulse Ox 94 L 01/11/17 06:21 Weight - Most Recent: 90.322 kg I&O - Last 24 Hours: Intake & Output 01/10/17 01/11/17 01/11/17 22:59 06:59 14:59 Intake Total 0 50 Output Total 0 Balance 0 50 Lab Results Last 24 Hours: Laboratory Results - last 24 hr 01/11/17 01/11/17 Range/Units 07:20 07:20 WBC 5.0 (5.0-10.0) 10^3/uL RBC 4.53 (3.80-5.50) 10^6/uL Hgb 14.2 (12.0-16.0) g/dL Hct 44.0 (37.0-47.0) % MCV 97.0 H (82.0-92.0) fL MCH 31.3 H (27.0-31.0) pg MCHC 32.3 (32.0-36.0) g/dL RDW 14.8 H (11.5-14.5) % Plt Count 89 L (150-300) 10^3/uL MPV 9.4 (7.4-10.4) fL Neut % (Auto) 66.8 (50.0-70.0) % Lymph % (Auto) 23.2 (20.0-40.0) % [place] % (Auto) 9.1 H (2.0-8.0) % Eos % (Auto) 0.7 L (1.0-3.0) % Baso % (Auto) 0.2 (0.0-1.0) % Neut # (Auto) 3.3 (2.5-7.0) 10^3/uL Lymph # (Auto) 1.2 (1.0-4.0) 10^3/uL [place] # (Auto) 0.5 (0.1-0.8) 10^3/uL Eos # (Auto) 0.0 L (0.1-0.3) 10^3/uL Baso # (Auto) 0.0 (0.0-0.1) 10^3/uL Sodium 144 (136-145) mmol/L Potassium 3.7 (3.3-5.3) mmol/L Chloride 105 (98-115) mmol/L Carbon Dioxide 39.9 H (21.0-32.0) mmol/L BUN 27 H (6-25) mg/dL Creatinine 0.44 L (0.51-1.17) mg/dL Est Cr Clr Drug Dosing 132.22 mL/min Estimated GFR (MDRD) > 60 mL/min Glucose 104 (70-110) mg/dL Calcium 10.6 H (8.7-10.3) mg/dL Total Bilirubin 1.1 H (0.2-1.0) mg/dL AST 12 L (15-37) U/L ALT 24 (12-78) U/L Alkaline Phosphatase 67 (46-116) IU/L Total Protein 6.0 L (6.4-8.2) g/dL Albumin 3.19 (3.00-4.80) g/dL Med Orders - Current: Current Medications Acetaminophen (Tylenol Extra Strength) 1,000 mg PO Q6H PRN PRN Reason: Pain Last Admin: 01/11/17 08:02 Dose: 1,000 mg Arformoterol Tartrate (Brovana) 15 mcg INH BID [facility] Last Admin: 01/11/17 08:20 Dose: 15 mcg Aspirin (Halfprin) 81 mg PO DAILY [facility] Last Admin: 01/11/17 08:11 Dose: 81 mg Atorvastatin Calcium (Lipitor) 40 mg PO BEDTIME [facility] Last Admin: 01/10/17 20:31 Dose: 40 mg Atropine Sulfate (Atropine 0.1 Mg/Ml) 0 mg IVPUSH ASDIRECTED PRN PRN Reason: Heart Budesonide (Pulmicort) 0.5 mg INH BID [facility] Last Admin: 01/11/17 08:34 Dose: 0.5 mg Cholecalciferol (Vitamin D3) 2,000 units PO DAILY [facility] Last Admin: 01/11/17 08:12 Dose: 2,000 units Citalopram Hydrobromide (Celexa) 20 mg PO DAILY [facility] Last Admin: 01/11/17 08:10 Dose: 20 mg Epinephrine HCl (Epinephrine 1:10,000) 1 mg IVPUSH ASDIRECTED PRN PRN Reason: Heart Ipratropium [place] (Atrovent) 0.5 mg INH QID PRN PRN Reason: Wheezing Lidocaine HCl (Xylocaine 2%) 0 mg IVPUSH ASDIRECTED PRN PRN Reason: Heart Metoprolol Tartrate (Lopressor) 12.5 mg PO BID [facility] Last Admin: 01/11/17 08:14 Dose: 12.5 mg Miscellaneous Information (Remove Patch) 1 ea TRDERM DAILY [facility] Last Admin: 01/11/17 08:12 Dose: 1 ea Multivitamins/Minerals (Centrum) 1 tab PO DAILY [facility] Last Admin: 01/11/17 08:11 Dose: 1 tab Nicotine (Habitrol) 21 mg TOP DAILY [facility] Last Admin: 01/11/17 08:11 Dose: 21 mg Nitroglycerin (Nitrostat) 0.4 mg SL ASDIRECTED PRN PRN Reason: Heart Omeprazole (Omeprazole) 20 mg PO ACBREAKFAST [facility] Last Admin: 01/11/17 06:10 Dose: 20 mg Prednisone (Prednisone) 60 mg PO WITHBREAKFAST [facility] Last Admin: 01/11/17 08:10 Dose: 60 mg Pregabalin (Lyrica) 200 mg PO BEDTIME [facility] Last Admin: 01/10/17 20:31 Dose: 200 mg Trazodone HCl (Trazodone) 50 mg PO BEDTIME [facility] Last Admin: 01/10/17 20:32 Dose: 50 mg Discontinued Medications Acetaminophen (Tylenol) 650 mg PO Q6H PRN PRN Reason: Pain Last Admin: 01/10/17 03:32 Dose: 650 mg Albuterol/Ipratropium (Duoneb 3.0-0.5 Mg/3 Ml) 3 ml NEB ONETIME ONE Stop: 01/08/17 11:36 Last Admin: 01/08/17 12:03 Dose: 3 ml Arformoterol Tartrate (Brovana) 15 mcg INH BIDRT [facility] Last Admin: 01/09/17 09:09 Dose: Not Given Budesonide (Pulmicort) 0.5 mg INH BIDRT [facility] Last Admin: 01/09/17 09:09 Dose: Not Given Calcium Citrate (Calcium Citrate + D) 2 tab PO DAILY [facility] Last Admin: 01/11/17 08:10 Dose: 2 tab Ceftriaxone Sodium (Rocephin) 1 gm IVPUSH ONETIME ONE Stop: 01/08/17 13:28 Last Admin: 01/08/17 14:40 Dose: 1 gm Ceftriaxone Sodium (Rocephin) 1 gm IVPUSH Q24H [facility] Last Admin: 01/10/17 14:42 Dose: 1 gm Enoxaparin Sodium (Lovenox) 45 mg SUBCUT Q12HR [facility] Ferrous Sulfate (Ferrous Sulfate) 325 mg PO DAILY [facility] Last Admin: 01/10/17 08:16 Dose: 325 mg Furosemide (Lasix) 20 mg IVPUSH NOW ONE Stop: 01/08/17 21:43 Last Admin: 01/08/17 22:16 Dose: 20 mg Furosemide (Lasix) 20 mg IV ONETIME ONE Stop: 01/09/17 11:31 Last Admin: 01/09/17 12:06 Dose: 20 mg Ibuprofen (Motrin) 800 mg PO BEDTIME [facility] Methylprednisolone Sodium Succinate (Solu-Medrol) 125 mg IVPUSH ONETIME ONE Stop: 01/08/17 11:36 Last Admin: 01/08/17 12:01 Dose: 125 mg Multivitamins/Minerals (Centrum) 1 tab PO DAILY [facility] Pregabalin (Lyrica) 200 mg PO TID [facility] Last Admin: 01/09/17 08:41 Dose: Not Given Roflumilast (Daliresp) 500 mcg PO DAILY [facility] Last Admin: 01/09/17 15:01 Dose: Not Given Tiotropium [place] (Spiriva Handihaler) 0 mcg INH DAILY [facility] Last Admin: 01/09/17 12:35 Dose: Not Given Trazodone HCl (Trazodone) 50 mg PO ONETIME ONE Stop: 01/08/17 17:55 Last Admin: 01/08/17 23:20 Dose: Not Given - Exam Physical Findings Comments:: GENERAL: Chronically ill-appearing adult white female appearing older than stated age lying in hospital bed in no acute distress. HEENT: Conjunctiva clear. Mucous membranes moist. NECK: Supple. CV: Regular rate and rhythm, no murmurs, rubs, or gallops. 2+ radial and pedal pulses. PULMONARY: Normal effort, poor air movement throughout with minimal air movement in bilateral bases, but no wheezes, rales, or rhonchi. ABDOMEN: Positive bowel sounds, soft, nontender, nondistended. EXTREMITIES: No edema. NEUROLOGICAL: No obvious deficits. DERMATOLOGIC: No rashes or suspicious lesions in exposed areas. PSYCHIATRIC: Alert, interactive, cantankerous affect. - Problem List Review Problem List Initiated/Reviewed/Updated: Yes - My Orders Last 24 Hours: My Active Orders 01/10/17 10:56 Acetaminophen [Tylenol Extra Strength] 1,000 mg PO Q6H PRN 01/10/17 10:59 EKG 12 Lead [EK] Routine 01/10/17 11:03 Weight Daily [Height and Weight] [RC] 0700 PT Evaluation and Treatment [CONS] Routine 01/10/17 11:30 atorvaSTATin [Lipitor] 40 mg PO BEDTIME 01/10/17 11:32 Antiembolic Devices [RC] 0900,2100 SCD [Sequential Compression Device] [OM.PC] Routine 01/10/17 14:17 Consult to [employer] Consultant [CONS] Routine 01/11/17 07:20 FOLATE [REF] Routine HEPATITIS C AB [REF] Routine HIV 1,2 AB/AG COMBO SCREEN [REF] Routine VITAMIN B12 [REF] Routine 01/12/17 05:11 Chest 2V [CR] AM CMP [COMPREHENSIVE METABOLIC PN,CMP] [CHEM] AM - Assessment Assessment:: Ms. Carreno is a 61yoF with history significant for diastolic heart failure, COPD, chronic hypoxic respiratory failure, and complex recent past medical history including acute hospitalization for NSTEMI in 08/2016 which was complicated by hemorrhagic shock due to a left retroperitoneal hematoma developed while on Lovenox followed by a prolonged stay at [facility] with tracheostomy due to ARDS, who was admitted 01/08/17 from the ED for an elevated troponin. Hospitalization day #4. Hospitalization problems: # NSTEMI: No chest pain or anginal equivalent symptoms. Troponin downtrended. EKG without ST elevation. Telemetry without abnormalities. Has a hx of NSTEMI in August 2016 as well, but has not had stress test or angiogram. ASA continued, BB was started 01/09, and statin will be started today. Not a good candidate for dual antiplatelet therapy or anticoagulation given prior retroperitoneal hemorrhage on Lovenox. Recommend outpatient stress test. # HFpEF, acute on chronic: Initial symptoms of volume overload and pleural effusion on XR chest. Last echo 09/02/16 with normal systolic function, but dilated right ventricle and reduced RVSF as well as mild pulmonary hypertension. She received Lasix 20mg IV the first 2 days with good diuresis and declined wanting to receive any diuretics yesterday. Despite not receiving any, weight is down again and she has lost 8kg since admission. Reassuring cardiopulmonary and fluid status today, so will continue current management and consider initiating small dose of oral furosemide tomorrow if needed. Monitor daily weight and I/O. # Chronic hypoxic respiratory failure: Oxygen now at baseline of 3.5lpm. Poor functional status. Referral to respiratory therapy placed. # COPD with acute exacerbation: Improved pulmonary status. No wheezing on exam today. Continue prednisone burst day 4, Brovana, and Pulmicort, in addition to DuoNebs as needed. # UTI: Symptoms resolved. Afebrile and WBC normal. Transition from ceftriaxone to Bactrim, antibiotic day 4. # Thrombocytopenia: Plt stable today. No evidence of bleeding. Likely related to infection, but no hx of HIV or hepatitis C assessment, so obtained and pending. Recheck CBC tomorrow. # Macrocytosis: Normal H/H, but slight macrocytosis. Hx of alcoholism, but no recent folate or B12 assessment, so obtained and pending. Recheck CBC tomorrow. # Hyperbilirubinemia: 1.1 today on CMP. No symptoms or abdominal pain. Recheck tomorrow. # Debility: Chronic issue with recent worsening over the last month with frequent falls. PT consult placed for evaluation Thursday. Possible swing bed rehabilitation candidate. Chronic conditions related to management: # GERD: Stable. Continue PPI. # Osteopenia: Continue vitD supplementation. Holding Ca supplementation due to mild hypercalcemia. # Peripheral neuropathy: Stable. Continue Lyrica. # Depression: Stable. Continue Celexa. # Insomnia: Stable. Continue Trazodone. # Tobacco dependence: Pre-contemplative stage of change. Continue nicotine patch. Hospitalization details: # FEN: No IVF. Electrolytes normal; recheck tomorrow. Cardiac diet. # PPX: DVT ppx with SCDs (discussed importance of this today, as she refused yesterday), given contraindication to pharmacologic ppx due to prior retroperitoneal bleed from Lovenox. # Code status: FULL CODE. # Emergency contact: . # Disposition: Continue on Medical-Surgical unit. Anticipate possible discharge to swing bed on 01/12 pending clinical course and PT evaluation.
[2017-01-11] MEDS: Sulfamethoxazole/Trimethoprim 800-160 MG Tab PO SCH (20:11)
[2017-01-11] MEDS: atorvaSTATin 40 MG Tab PO SCH (20:11)
[2017-01-11] MEDS: Pregabalin 100 MG Cap PO SCH (20:11)
[2017-01-11] MEDS: traZODone 50 MG Tab PO SCH (20:11)
[2017-01-12] MEDS: Acetaminophen 500 MG Tab PO PRN (06:05)
[2017-01-12] MEDS: Omeprazole 20 MG Cap.CR PO SCH (06:05)
[2017-01-12 06:54] VITALS: BP 132/59
[2017-01-12 08:07] LABS: CHLORIDE,CL 105 mmol/L (98-115); SODIUM,NA 149 mmol/L (136-145)
[2017-01-12] MEDS: Arformoterol 15 MCG/2 ML Neb Soln INH SCH (08:23)
[2017-01-12] MEDS: predniSONE 20 MG Tab PO SCH (08:32)
[2017-01-12] MEDS: Multivitamins with Minerals/Iron/Folic Acid/Lycopene Tab PO SCH (08:33)
[2017-01-12] MEDS: Citalopram 20 MG Tab PO SCH (08:33)
[2017-01-12] MEDS: Aspirin 81 MG Tab.EC PO SCH (08:33)
[2017-01-12] MEDS: Cholecalciferol (Vitamin D3) 1,000 Unit Tab PO SCH (08:33)
[2017-01-12] MEDS: Nicotine 21 MG/24 Hr Patch TOP SCH (08:34)
[2017-01-12] MEDS: Sulfamethoxazole/Trimethoprim 800-160 MG Tab PO SCH (08:39)
[2017-01-12] MEDS: Budesonide 0.5 MG/2 ML Neb Susp INH SCH (09:36)
[2017-01-12] MEDS: Metoprolol Tartrate 25 MG Tab PO SCH (09:49)
--- NOTE | 2017-01-12 10:06 | PCM.DCSUM1 ---
Discharge Summary - Hospital Course Free Text/Narrative:: Ms. Carreno is a 61yoF with history significant for diastolic heart failure, COPD, chronic hypoxic respiratory failure, and complex recent past medical history including acute hospitalization for NSTEMI in 08/2016 which was complicated by hemorrhagic shock due to a left retroperitoneal hematoma developed while on Lovenox followed by a prolonged stay at [facility] with tracheostomy due to ARDS, who was admitted 01/08/17 from the ED for an elevated troponin. She initially presented with generalized weakness, recurrent falls, and increased shortness of breath. Hospital course by problem is detailed below. She had overall improvement with regard to acute problems, but debility continued to be a primary concern and she was discharged to swing bed status for ongoing physical and respiratory rehabilitation. # NSTEMI: Has a hx of NSTEMI in August 2016 as well, but has not had stress test or angiogram. Troponin downtrended from a maximum of 0.27, which was initial troponin in the ED. EKG without ST elevation, but with inverted T-waves in V1-V4 , unchanged on repeat obtained 01/10. Telemetry without abnormalities throughout stay. ASA was continued, BB was started 01/09, and statin started 01/10. Not a good candidate for dual antiplatelet therapy or anticoagulation given prior retroperitoneal hemorrhage on Lovenox. Recommend outpatient stress test. # HFpEF, acute on chronic: Last echo 09/02/16 with normal systolic function, but dilated right ventricle and reduced RVSF as well as mild pulmonary hypertension. Initial symptoms of volume overload and pleural effusion on XR chest. She received Lasix 20mg IV the first 2 days with good diuresis and continued to diurese without repeat doses, losing 11kg throughout her stay. Monitor daily weight and consider initiating small maintenance dose of Lasix if weight increases. # Chronic hypoxic respiratory failure: Oxygen at baseline of 3.5lpm. Very poor functional status. Respiratory therapy consulted and will continue in swing bed. # COPD with acute exacerbation: Improved pulmonary status during stay. Received prednisone burst for 5 days. Brovana and Pulmicort continued, in addition to Atrovent as needed. # UTI: Initial UA consistent with infection, but unfortunately not sent for culture. Symptoms resolved. Received 3 days of ceftriaxone, which was transitioned to Bactrim for completion of a 7 day course to end 01/14. # Thrombocytopenia: Plt as low as 89 during stay, uptrended on day of discharge to 104. No evidence of bleeding. Likely related to infection, but no hx of HIV or hepatitis C assessment, so obtained and pending. Recommend follow-up CBC in the future. # Macrocytosis: Normal H/H, but slight macrocytosis. Hx of alcoholism, but no recent folate or B12 assessment, so obtained and pending. Recommend follow-up CBC in the future. # Hyperbilirubinemia: Mild, as high as 1.2 on day of discharge. Asymptomatic. Recommend follow-up CMP in the future. # Debility: Chronic issue with recent worsening over the last month with frequent falls. PT consulted and will continue in swing bed. Chronic conditions related to management during hospitalization: # GERD: Stable. Continue PPI. # Osteopenia: Continue vitD supplementation. Discontinued Ca supplementation due to mild hypercalcemia noted during admission. # Peripheral neuropathy: Stable. Continue Lyrica. # Depression: Stable. Continue Celexa. # Insomnia: Stable. Continue Trazodone. # Tobacco dependence: Pre-contemplative stage of change. Continue nicotine patch. - Discharge Data Discharge Date: 01/12/17 Discharge Disposition: DC/Tfer W/I Hosp To Swing 61 Condition: Fair - Patient Summary/Data Consults: Consultations 01/10/17 11:03 PT Evaluation and Treatment [CONS] Routine 01/10/17 14:17 Consult to [employer] [CONS] Routine 01/11/17 12:29 Consult to Respiratory Therapy [Respiratory Care Assess and Treatment] [CONS] Routine - Patient Instructions Diet: Heart Healthy Diet Activity: As Tolerated - Discharge Plan Home Medications: Home Meds Citalopram Hydrobromide [Citalopram HBr] 20 mg PO DAILY 09/02/16 [History] Omeprazole 20 mg PO ACBREAKFAST 09/02/16 [History] Pregabalin [Lyrica] 200 mg PO 2100 09/02/16 [History] Arformoterol [Brovana] 15 mcg INH BID 01/08/17 [History] Aspirin 81 mg PO DAILY 01/08/17 [History] Budesonide [Pulmicort] 2 ml INH BID 01/08/17 [History] Cholecalciferol (Vitamin D3) [Vitamin D3] 2,000 unit PO DAILY 01/08/17 [History] Ipratropium [Atrovent] 2.5 ml INH QID PRN 01/08/17 [History] Multivits w-Fe,Other Min/Lut [Theratrum Complete] 1 tab PO DAILY 01/08/17 [ History] Nicotine [Nicotine Patch] 21 mg TOP DAILY 01/08/17 [History] Tiotropium [place] [Spiriva Respimat] 2 puff INH DAILY 01/08/17 [History] traZODone 50 mg PO BEDTIME 01/08/17 [History] Acetaminophen [Tylenol Extra Strength] 1,000 mg PO Q6H PRN tablet 01/12/17 [Rx] Metoprolol Tartrate [Lopressor] 12.5 mg PO BID tablet 01/12/17 [Rx] atorvaSTATin [Lipitor] 40 mg PO BEDTIME tablet 01/12/17 [Rx] - Discharge Summary/Plan Comment DC Time >30 min.: Yes Discharge Summary/Plan Comment: Transfer to Swing Bed status at [facility] for ongoing physical and respiratory rehabilitation. - General Info Date of Service: 01/12/17 Subjective Update: Ms. Carreno states that she feels "OK" today. She continues to have limited energy and poor activity tolerance. Continues to be in bed most of the day and not get up to the chair or ambulate much, but states she is motivated to improve her strength so she can go home and "not fall all of the time." Continues to have chronic shortness of breath, though improved since admission. She currently has no new complaints, and specifically denies any fever, chest pain, palpitations, or abdominal pain. - Patient Data Vitals - Most Recent: Last Vital Signs Temp 36.7 C 01/12/17 06:53 Pulse 54 L 01/12/17 06:53 Resp 20 01/12/17 06:53 BP 132/59 L 01/12/17 06:53 Pulse Ox 95 01/12/17 08:20 Weight - Most Recent: 87.09 kg I&O - Last 24 hours: Intake & Output 01/11/17 01/12/17 01/12/17 22:59 06:59 14:59 Intake Total 210 150 Output Total 200 100 Balance 10 50 Lab Results - Last 24 hrs: Laboratory Results - last 24 hr 01/12/17 01/12/17 Range/Units 07:28 07:28 WBC 5.0 (5.0-10.0) 10^3/uL RBC 4.63 (3.80-5.50) 10^6/uL Hgb 14.7 (12.0-16.0) g/dL Hct 44.6 (37.0-47.0) % MCV 96.4 H (82.0-92.0) fL MCH 31.8 H (27.0-31.0) pg MCHC 33.0 (32.0-36.0) g/dL RDW 14.3 (11.5-14.5) % Plt Count 104 L (150-300) 10^3/uL MPV 10.3 (7.4-10.4) fL Neut % (Auto) 64.0 (50.0-70.0) % Lymph % (Auto) 26.3 (20.0-40.0) % [place] % (Auto) 8.9 H (2.0-8.0) % Eos % (Auto) 0.6 L (1.0-3.0) % Baso % (Auto) 0.2 (0.0-1.0) % Neut # (Auto) 3.3 (2.5-7.0) 10^3/uL Lymph # (Auto) 1.3 (1.0-4.0) 10^3/uL [place] # (Auto) 0.4 (0.1-0.8) 10^3/uL Eos # (Auto) 0.0 L (0.1-0.3) 10^3/uL Baso # (Auto) 0.0 (0.0-0.1) 10^3/uL Sodium 149 H (136-145) mmol/L Potassium 4.0 (3.3-5.3) mmol/L Chloride 105 (98-115) mmol/L Carbon Dioxide 41.4 H (21.0-32.0) mmol/L BUN 32 H (6-25) mg/dL Creatinine 0.57 (0.51-1.17) mg/dL Est Cr Clr Drug Dosing 102.07 mL/min Estimated GFR (MDRD) > 60 mL/min Glucose 107 (70-110) mg/dL Calcium 10.4 H (8.7-10.3) mg/dL Total Bilirubin 1.2 H (0.2-1.0) mg/dL AST 12 L (15-37) U/L ALT 22 (12-78) U/L Alkaline Phosphatase 68 (46-116) IU/L Total Protein 6.4 (6.4-8.2) g/dL Albumin 3.37 (3.00-4.80) g/dL Med Orders - Current: Current Medications Acetaminophen (Tylenol Extra Strength) 1,000 mg PO Q6H PRN PRN Reason: Pain Last Admin: 01/12/17 06:05 Dose: 1,000 mg Arformoterol Tartrate (Brovana) 15 mcg INH BID [facility] Last Admin: 01/12/17 08:23 Dose: 15 mcg Aspirin (Halfprin) 81 mg PO DAILY [facility] Last Admin: 01/12/17 08:33 Dose: 81 mg Atorvastatin Calcium (Lipitor) 40 mg PO BEDTIME [facility] Last Admin: 01/11/17 20:11 Dose: 40 mg Budesonide (Pulmicort) 0.5 mg INH BID [facility] Last Admin: 01/12/17 09:36 Dose: 0.5 mg Cholecalciferol (Vitamin D3) 2,000 units PO DAILY [facility] Last Admin: 01/12/17 08:33 Dose: 2,000 units Citalopram Hydrobromide (Celexa) 20 mg PO DAILY [facility] Last Admin: 01/12/17 08:33 Dose: 20 mg Ipratropium [place] (Atrovent) 0.5 mg INH QID PRN PRN Reason: Wheezing Metoprolol Tartrate (Lopressor) 12.5 mg PO BID [facility] Last Admin: 01/12/17 09:49 Dose: Not Given Miscellaneous Information (Remove Patch) 1 ea TRDERM DAILY [facility] Last Admin: 01/12/17 08:33 Dose: 1 ea Multivitamins/Minerals (Centrum) 1 tab PO DAILY [facility] Last Admin: 01/12/17 08:33 Dose: 1 tab Nicotine (Habitrol) 21 mg TOP DAILY [facility] Last Admin: 01/12/17 08:34 Dose: 21 mg Omeprazole (Omeprazole) 20 mg PO ACBREAKFAST [facility] Last Admin: 01/12/17 06:05 Dose: 20 mg Prednisone (Prednisone) 60 mg PO WITHBREAKFAST [facility] Last Admin: 01/12/17 08:32 Dose: 60 mg Pregabalin (Lyrica) 200 mg PO BEDTIME [facility] Last Admin: 01/11/17 20:11 Dose: 200 mg Trazodone HCl (Trazodone) 50 mg PO BEDTIME [facility] Last Admin: 01/11/17 20:11 Dose: 50 mg Trimethoprim/Sulfamethoxazole (Septra Ds) 1 tab PO BID [facility] Last Admin: 01/12/17 08:39 Dose: 1 tab Discontinued Medications Acetaminophen (Tylenol) 650 mg PO Q6H PRN PRN Reason: Pain Last Admin: 01/10/17 03:32 Dose: 650 mg Albuterol/Ipratropium (Duoneb 3.0-0.5 Mg/3 Ml) 3 ml NEB ONETIME ONE Stop: 01/08/17 11:36 Last Admin: 01/08/17 12:03 Dose: 3 ml Arformoterol Tartrate (Brovana) 15 mcg INH BIDRT [facility] Last Admin: 01/09/17 09:09 Dose: Not Given Atropine Sulfate (Atropine 0.1 Mg/Ml) 0 mg IVPUSH ASDIRECTED PRN PRN Reason: Heart Budesonide (Pulmicort) 0.5 mg INH BIDRT [facility] Last Admin: 01/09/17 09:09 Dose: Not Given Calcium Citrate (Calcium Citrate + D) 2 tab PO DAILY [facility] Last Admin: 01/11/17 08:10 Dose: 2 tab Ceftriaxone Sodium (Rocephin) 1 gm IVPUSH ONETIME ONE Stop: 01/08/17 13:28 Last Admin: 01/08/17 14:40 Dose: 1 gm Ceftriaxone Sodium (Rocephin) 1 gm IVPUSH Q24H [facility] Last Admin: 01/10/17 14:42 Dose: 1 gm Enoxaparin Sodium (Lovenox) 45 mg SUBCUT Q12HR [facility] Epinephrine HCl (Epinephrine 1:10,000) 1 mg IVPUSH ASDIRECTED PRN PRN Reason: Heart Ferrous Sulfate (Ferrous Sulfate) 325 mg PO DAILY [facility] Last Admin: 01/10/17 08:16 Dose: 325 mg Furosemide (Lasix) 20 mg IVPUSH NOW ONE Stop: 01/08/17 21:43 Last Admin: 01/08/17 22:16 Dose: 20 mg Furosemide (Lasix) 20 mg IV ONETIME ONE Stop: 01/09/17 11:31 Last Admin: 01/09/17 12:06 Dose: 20 mg Ibuprofen (Motrin) 800 mg PO BEDTIME [facility] Lidocaine HCl (Xylocaine 2%) 0 mg IVPUSH ASDIRECTED PRN PRN Reason: Heart Methylprednisolone Sodium Succinate (Solu-Medrol) 125 mg IVPUSH ONETIME ONE Stop: 01/08/17 11:36 Last Admin: 01/08/17 12:01 Dose: 125 mg Multivitamins/Minerals (Centrum) 1 tab PO DAILY [facility] Nitroglycerin (Nitrostat) 0.4 mg SL ASDIRECTED PRN PRN Reason: Heart Pregabalin (Lyrica) 200 mg PO TID [facility] Last Admin: 01/09/17 08:41 Dose: Not Given Roflumilast (Daliresp) 500 mcg PO DAILY [facility] Last Admin: 01/09/17 15:01 Dose: Not Given Tiotropium [place] (Spiriva Handihaler) 0 mcg INH DAILY [facility] Last Admin: 01/09/17 12:35 Dose: Not Given Trazodone HCl (Trazodone) 50 mg PO ONETIME ONE Stop: 01/08/17 17:55 Last Admin: 01/08/17 23:20 Dose: Not Given - Exam Physical Findings Comments:: GENERAL: Chronically ill-appearing adult white female appearing older than stated age sitting in bedside chair in no acute distress. HEENT: Conjunctiva clear. Mucous membranes moist. NECK: Supple. CV: Regular rate and rhythm, no murmurs, rubs, or gallops. 2+ radial and pedal pulses. PULMONARY: Normal effort, poor air movement throughout with minimal air movement in bilateral bases, but no wheezes, rales, or rhonchi. ABDOMEN: Positive bowel sounds, soft, nontender, nondistended. EXTREMITIES: No edema. NEUROLOGICAL: No obvious deficits. DERMATOLOGIC: No rashes or suspicious lesions in exposed areas. PSYCHIATRIC: Alert, interactive, mildly cantankerous affect. *Q Meaningful Use (DIS) - VTE *Q VTE Criteria *Q: - Stroke *Q Stroke Criteria *Q: - AMI *Q AMI Criteria *Q:
--- NOTE | 2017-02-02 08:22 | HP ---
ADDENDUM: PHYSICAL EXAMINATION: GENERAL: Reveals a very pleasant elderly patient in a moderate amount of distress. VITAL SIGNS: Temperature 98.2, pulse 85, respirations 20, blood pressure 140/70, and oxygen saturation 64%. HEAD: Negative. EYES: Arcus senilis. EARS, NOSE, AND THROAT: Normal. NECK: Supple. Full range of motion. No midline swellings. Thyroid gland is not enlarged. No enlarged lymph nodes present in the neck. HEART: Regular rhythm. Occasional ectopics noted. Grade 1/6 systolic murmur in the apex. No thrills or bruits heard. LUNGS: Clinically clear to percussion and auscultation. BREASTS: Soft without any masses. ABDOMEN: Soft, no masses, no tenderness. No abnormal pulsations. Femoral pulses are full and equal. EXTREMITIES: Normal without any edema of the lower extremities. Upper extremities are normal. NEUROLOGIC: Grossly intact. : Pelvic deferred. MUSCULOSKELETAL SYSTEM: Normal. /[id number]/MODL
== END 2017-01-12 09:46 | disposition swing bed (61) | DRG 280 ==
LOC: KA.ED 10:31 → KA.MS 13:50
PROVIDERS: ADMIT Physician Assistant Surgical; ATTEND Family Medicine
DX: I21.4 Non-ST elevation (NSTEMI) myocardial infarction (principal); I50.33 Acute on chronic diastolic (congestive) heart failure; R09.02 Hypoxemia; J90 Pleural effusion, not elsewhere classified; I50.9 Heart failure, unspecified; J44.9 Chronic obstructive pulmonary disease, unspecified; F41.8 Other specified anxiety disorders; E10.9 Type 1 diabetes mellitus without complications; Z79.4 Long term (current) use of insulin; J44.1 Chronic obstructive pulmonary disease with (acute) exacerbation; J96.11 Chronic respiratory failure with hypoxia; N39.0 Urinary tract infection, site not specified; R53.1 Weakness; I25.2 Old myocardial infarction; R29.6 Repeated falls; R79.89 Other specified abnormal findings of blood chemistry; D69.6 Thrombocytopenia, unspecified; D75.89 Other specified diseases of blood and blood-forming organs; E80.6 Other disorders of bilirubin metabolism; R53.81 Other malaise; K21.9 Gastro-esophageal reflux disease without esophagitis; M85.80 Other specified disorders of bone density and structure, unspecified site; E83.52 Hypercalcemia; G62.9 Polyneuropathy, unspecified; F32.9 Major depressive disorder, single episode, unspecified; G47.00 Insomnia, unspecified; F17.200 Nicotine dependence, unspecified, uncomplicated; Z79.899 Other long term (current) drug therapy; Z88.0 Allergy status to penicillin
CPT/HCPCS: 36415; 70450; 71020; 80053; 81001; 83880; 84484; 85025; 85610; 85730; 93005; 96374; 99285; J2930; 80048; 82607; 82746; 86703; 86803; 94640; A9270-GY; J0696; J1940

== ENCOUNTER 2017-01-12 09:42 | Inpatient (IN) | payer MEDICAID ==
[2017-01-12] MEDS ORDERED: Ipratropium 0.02% 0.5 MG/2.5 ML Neb Soln INH PRN ×2 (09:56→12:00)
--- NOTE | 2017-01-12 10:07 | PCM.HP ---
H&P History of Present Illness - General Date of Service: 01/12/17 Admit Problem/Dx: Admission Diagnosis/Problem Admission Diagnosis/Problem Debility Source of Information: Patient, Old Records History Limitations: Reports: No Limitations - History of Present Illness Initial Comments - Free Text/Narative: Ms. Carreno states that she feels "OK" today. She continues to have limited energy and poor activity tolerance. Continues to be in bed most of the day and not get up to the chair or ambulate much, but states she is motivated to improve her strength so she can go home and "not fall all of the time." Continues to have chronic shortness of breath, though improved since acute admission. No concerns today. - Related Data Allergies/Adverse Reactions: Allergies Allergy/AdvReac Type Severity Reaction Status Date / Time Penicillins Allergy Rash Verified 01/12/17 10:22 Home Medications: Home Meds Citalopram Hydrobromide [Citalopram HBr] 20 mg PO DAILY 09/02/16 [History] Omeprazole 20 mg PO ACBREAKFAST 09/02/16 [History] Pregabalin [Lyrica] 200 mg PO 2100 09/02/16 [History] Arformoterol [Brovana] 15 mcg INH BID 01/08/17 [History] Aspirin 81 mg PO DAILY 01/08/17 [History] Budesonide [Pulmicort] 2 ml INH BID 01/08/17 [History] Cholecalciferol (Vitamin D3) [Vitamin D3] 2,000 unit PO DAILY 01/08/17 [History] Ipratropium [Atrovent] 2.5 ml INH QID PRN 01/08/17 [History] Multivits w-Fe,Other Min/Lut [Theratrum Complete] 1 tab PO DAILY 01/08/17 [ History] Nicotine [Nicotine Patch] 21 mg TOP DAILY 01/08/17 [History] traZODone 50 mg PO BEDTIME 01/08/17 [History] Acetaminophen [Tylenol Extra Strength] 1,000 mg PO Q6H PRN tablet 01/12/17 [Rx] Metoprolol Tartrate [Lopressor] 12.5 mg PO BID tablet 01/12/17 [Rx] Prednisone [IJD: predniSONE] 60 mg PO DAILY 01/12/17 [History] Sulfamethoxazole/Trimethoprim [Septra DS] 1 tab PO BID 01/12/17 [History] atorvaSTATin [Lipitor] 40 mg PO BEDTIME tablet 01/12/17 [Rx] Past Medical History HEENT History: Reports: Impaired Vision Cardiovascular History: Reports: Heart Failure, MT, Other (See Below) Other Cardiovascular History: Hypercalcemia, hypotension. Respiratory History: Reports: COPD Musculoskeletal History: Reports: Back Pain, Chronic, Osteoarthritis Neurological History: Reports: CVA Other Neuro History: subdural hematoma Psychiatric History: Reports: Addiction, Anxiety, Depression Endocrine/Metabolic History: Reports: Hyperparathyroidism, Obesity/BMI 30+ Dermatologic History: Reports: Other (See Below) Other Dermatologic History: NUMEROUS SCABBED AREAS ON SKIN , FEET IN POOR CONDITION - Past Surgical History Head Surgeries/Procedures: Reports: None HEENT Surgical History: Reports: None Cardiovascular Surgical History: Reports: None Respiratory Surgical History: Reports: Tracheostomy GI Surgical History: Reports: Abdominal paracentesis, Other (See Below) Other GI Surgeries/Procedures: Peg tube since removed. Endocrine Surgical History: Reports: Parathyroidectomy Neurological Surgical History: Reports: Intracranial Musculoskeletal Surgical History: Reports: Other (See Below) Other Musculoskeletal Surgeries/Procedures:: Ankle- screws have been removed. Social & Family History - Family History Family Medical History: Noncontributory - Tobacco Use Smoking Status *Q: Current Every Day Smoker Years of Tobacco use: 15 Packs/Tins Daily: 0.5 Used Tobacco, but Quit: No Second Hand Smoke Exposure: Yes - Caffeine Use Caffeine Use: Reports: Coffee, Soda - Recreational Drug Use Recreational Drug Use: No - Living Situation & Occupation Living situation: Reports: , Alone Occupation: Disabled H&P Review of Systems - Review of Systems: Review Of Systems: See Below General: Reports: Weakness, Fatigue. Denies: Fever, Chills HEENT: Reports: No Symptoms Pulmonary: Reports: Shortness of Breath. Denies: Wheezing, Cough, Hemoptysis Cardiovascular: Reports: Dyspnea on Exertion. Denies: Chest Pain, Palpitations , Orthopnea, Edema, Lightheadedness Gastrointestinal: Denies: Abdominal Pain, Constipation, Diarrhea Genitourinary: Denies: Dysuria, Frequency, Burning Musculoskeletal: Reports: Neck Pain (chronic), Back Pain (chronic). Denies: Muscle Pain Skin: Reports: No Symptoms Psychiatric: Reports: No Symptoms Neurological: Reports: No Symptoms Hematologic/Lymphatic: Reports: No Symptoms Immunologic: Reports: No Symptoms Exam - Exam Exam: See Below - Vital Signs Weight: 87.09 kg - Exam Physical Exam Comments:: GENERAL: Chronically ill-appearing adult white female appearing older than stated age sitting in bedside chair in no acute distress. HEENT: Conjunctiva clear. Mucous membranes moist. NECK: Supple. CV: Regular rate and rhythm, no murmurs, rubs, or gallops. 2+ radial and pedal pulses. PULMONARY: Normal effort, poor air movement throughout with minimal air movement in bilateral bases, but no wheezes, rales, or rhonchi. ABDOMEN: Positive bowel sounds, soft, nontender, nondistended. EXTREMITIES: No edema. NEUROLOGICAL: No obvious deficits. DERMATOLOGIC: No rashes or suspicious lesions in exposed areas. PSYCHIATRIC: Alert, interactive, mildly cantankerous affect. *Q Meaningful Use (ADM) - VTE *Q VTE Criteria *Q: - Stroke *Q Stroke Criteria *Q: - AMI *Q AMI Criteria *Q: Problem List Initiated/Reviewed/Updated: Yes Orders Last 24hrs: Active Orders 24 hr Category Date Time Status Patient Status [ADT] Routine ADT 01/12/17 09:56 Ordered Antiembolic Devices [RC] PER UNIT ROUTINE Care 01/12/17 09:56 Active Antiembolic Devices [RC] PER UNIT ROUTINE Care 01/12/17 09:56 Active Incentive Breathing [RT Incentive Spirometry] [RC] Care 01/12/17 09:56 Active ASDIRECTED Oxygen Therapy [RC] PRN Care 01/12/17 09:56 Active RT Aerosol Therapy [RC] ASDIRECTED Care 01/12/17 09:56 Active RT Aerosol Therapy [RC] ASDIRECTED Care 01/12/17 09:56 Active RT Post Treatment Assessment [RC] Click to Edit Care 01/12/17 09:56 Active RT Pre-Treatment Assessment [RC] Click to Edit Care 01/12/17 09:56 Active Vital Signs [RC] Q4H Care 01/12/17 09:56 Active Weight Daily [Height and Weight] [RC] DAILY Care 01/12/17 09:56 Active Consult to Respiratory Therapy [Respiratory Care Assess Cons 01/12/17 09:56 Active and Treatment] [CONS] Routine Consult to Creative Perfumer [CONS] Routine Cons 01/12/17 09:56 Active PT Evaluation and Treatment [CONS] Routine Cons 01/12/17 09:56 Active Heart Healthy Diet [DIET] Diet 01/12/17 Dinner Active Acetaminophen [Tylenol Extra Strength] Med 01/12/17 09:56 Ordered 1,000 mg PO Q6H PRN Arformoterol [Brovana] Med 01/12/17 21:00 Ordered 15 mcg INH BID Aspirin [Halfprin] Med 01/13/17 09:00 Ordered 81 mg PO DAILY Budesonide [Pulmicort] Med 01/12/17 21:00 Ordered 0.5 mg INH BID Cholecalciferol (Vitamin D3) [Vitamin D3] Med 01/13/17 09:00 Ordered 2,000 units PO DAILY Citalopram [Celexa] Med 01/13/17 09:00 Ordered 20 mg PO DAILY FA/Lycopene/Lut/MV,Ca,Iron,Min [Centrum] Med 01/13/17 09:00 Ordered 1 tab PO DAILY Ipratropium [Atrovent] Med 01/12/17 09:56 Ordered 0.5 mg INH QID PRN Metoprolol Tartrate [Lopressor] Med 01/12/17 21:00 Ordered 12.5 mg PO BID Nicotine [Habitrol] Med 01/13/17 09:00 Ordered 21 mg TOP DAILY Omeprazole Med 01/13/17 07:30 Ordered 20 mg PO ACBREAKFAST Pregabalin [Lyrica] Med 01/12/17 21:00 Ordered 200 mg PO BEDTIME Remove Patch Med 01/13/17 09:00 Ordered 1 ea TRDERM DAILY Sulfamethoxazole/Trimethoprim [Septra DS] Med 01/12/17 21:00 Ordered 1 tab PO Click to Edit [email or web address] [Lipitor] Med 01/12/17 21:00 Ordered 40 mg PO BEDTIME predniSONE Med 01/13/17 08:00 Ordered 60 mg PO WITHBREAKFAST traZODone Med 01/12/17 21:00 Ordered 50 mg PO BEDTIME SCD [Sequential Compression Device] [OM.PC] Routine Oth 01/12/17 09:56 Ordered Resuscitation Status Routine Resus Stat 01/12/17 09:58 Ordered Medication Orders Acetaminophen (Tylenol Extra Strength) 1,000 mg PO Q6H PRN PRN Reason: Pain Arformoterol Tartrate (Brovana) 15 mcg INH BID [facility]NESTO Aspirin (Halfprin) 81 mg PO DAILY ER[facility]STO Atorvastatin Calcium (Lipitor) 40 mg PO BEDTIME ERNESTO Budesonide (Pulmicort) 0.5 mg INH BID [facility]NESTO Cholecalciferol (Vitamin D3) 2,000 units PO DAILY [facility]NESTO Citalopram Hydrobromide (Celexa) 20 mg PO DAILY ERNESTO Ipratropium [place] (Atrovent) 0.5 mg INH QID PRN PRN Reason: Wheezing Metoprolol Tartrate (Lopressor) 12.5 mg PO BID [facility] Miscellaneous Information (Remove Patch) 1 ea TRDERM DAILY [facility] Multivitamins/Minerals (Centrum) 1 tab PO DAILY ERNESTO Nicotine (Habitrol) 21 mg TOP DAILY [facility]NESTO Omeprazole (Omeprazole) 20 mg PO ACBREAKFAST ERNESTO Prednisone (Prednisone) 60 mg PO WITHBREAKFAST ERNESTO Pregabalin (Lyrica) 200 mg PO BEDTIME ERNESTO Trazodone HCl (Trazodone) 50 mg PO BEDTIME ERNESTO Trimethoprim/Sulfamethoxazole (Septra Ds) 1 tab PO BID ERNESTO Stop: 01/14/17 21:00 Assessment/Plan Comment:: Ms. Carreno is a 61yoF with history significant for diastolic heart failure, COPD, chronic hypoxic respiratory failure, and complex recent past medical history including acute hospitalization for NSTEMI in 08/2016 which was complicated by hemorrhagic shock due to a left retroperitoneal hematoma developed while on Lovenox followed by a prolonged stay at [facility] with tracheostomy due to ARDS, who was admitted 01/08/[address] [facility] from the ED for an elevated troponin. She initially presented with generalized weakness, recurrent falls, and increased shortness of breath. She had overall improvement with regard to acute problems, but debility continued to be a primary concern and she was discharged to swing bed [facility] for ongoing physical and respiratory rehabilitation. # Debility: Chronic issue with recent worsening over the last month with frequent falls. PT consulted. # NSTEMI: Hx of NSTEMI in August 2016 as well as during acute hospitalization in December 2016. Continue ASA, BB, and statin. BPs well controlled, so ACEI not initiated, but may be considered in the future. Recommend outpatient stress test. # HFpEF: Last echo 09/02/16 with normal systolic function, but dilated right ventricle and reduced RVSF as well as mild pulmonary hypertension. During acute hospitalization, she was volume overloaded with pleural effusion on XR chest which responded well to Lasix 20mg IV x 2 days with continued diuresis without repeat doses, losing 11kg throughout her stay. Monitor daily weight and consider initiating small maintenance dose of Lasix if weight increases. # Chronic hypoxic respiratory failure and respiratory acidosis: Oxygen at baseline of 3.5lpm. Chronic CO2 retainer with baseline CO2 around 40. Very poor functional status. Respiratory therapy consulted. # UTI: During acute hospitalization, UA consistent with infection, but unfortunately not sent for culture. Symptoms resolved. Received 3 days of ceftriaxone, which was transitioned to Bactrim for completion of a 7 day course to end 01/14. # Thrombocytopenia: Plt as low as 89 during acute hospitalization, uptrended today to 104. No evidence of bleeding. Likely related to recent infection, but no hx of HIV or hepatitis C assessment, so obtained and pending. Recommend follow-up CBC in the future. # Macrocytosis: Normal H/H, but slight macrocytosis. Hx of alcoholism, but no recent folate or B12 assessment, so obtained and pending. Recommend follow-up CBC in the future. # Hypernatremia: Mild, at 149 today. Asymptomatic. Likely related to overall decrease in fluid status. Recommend recheck in the next few days. # Hyperbilirubinemia: Mild, as high as 1.2 on day of discharge. Asymptomatic. Recommend recheck in the future. Chronic conditions related to management during hospitalization: # COPD: Exacerbation during acute hospitalization with improved pulmonary status following prednisone burst for 5 days. Continue Brovana and Pulmicort continued, in addition to Atrovent as needed. # GERD: Stable. Continue PPI. # Osteopenia: Continue vitD supplementation. Discontinued Ca supplementation due to mild hypercalcemia. # Peripheral neuropathy: Stable. Continue Lyrica. # Depression: Stable. Continue Celexa. # Insomnia: Stable. Continue Trazodone. # Tobacco dependence: Pre-contemplative stage of change. Continue nicotine patch. Hospitalization details: # FEN: No IVF. Electrolytes normal except hypernatremia, as above. Cardiac diet. # PPX: DVT ppx with SCDs until she is tolerating increased ambulation. # Code status: FULL CODE. # Emergency contact: . # Disposition: Admit to swing bed for physical and respiratory rehabilitation.
[2017-01-12] MEDS ORDERED: Acetaminophen 500 MG Tab PO PRN (12:00)
[2017-01-12] MEDS: Acetaminophen 500 MG Tab PO PRN ×2 (12:43→20:37)
[2017-01-12] MEDS ORDERED: Morphine 2 MG/ML Syringe IVPUSH ONE (17:26)
[2017-01-12] MEDS ORDERED: Morphine 2 MG/ML Syringe IM ONE (17:30)
[2017-01-12] MEDS: atorvaSTATin 40 MG Tab PO SCH (20:32)
[2017-01-12] MEDS: Metoprolol Tartrate 25 MG Tab PO SCH (20:32)
[2017-01-12] MEDS: Sulfamethoxazole/Trimethoprim 800-160 MG Tab PO SCH (20:32)
[2017-01-12] MEDS: Pregabalin 100 MG Cap PO SCH (20:32)
[2017-01-12] MEDS: traZODone 50 MG Tab PO SCH (20:32)
[2017-01-12] MEDS: Arformoterol 15 MCG/2 ML Neb Soln INH SCH (20:35)
[2017-01-12] MEDS: Budesonide 0.5 MG/2 ML Neb Susp INH SCH (20:35)
[2017-01-12] MEDS ORDERED: atorvaSTATin 40 MG Tab PO SCH (21:00)
[2017-01-12] MEDS ORDERED: traZODone 50 MG Tab PO SCH (21:00)
[2017-01-12] MEDS ORDERED: Arformoterol 15 MCG/2 ML Neb Soln INH SCH (21:00)
[2017-01-12] MEDS ORDERED: Budesonide 0.5 MG/2 ML Neb Susp INH SCH (21:00)
[2017-01-12] MEDS ORDERED: PREGABALIN 200 MG PO SCH (21:00)
[2017-01-12] MEDS ORDERED: Metoprolol Tartrate 25 MG Tab PO SCH (21:00)
[2017-01-12] MEDS ORDERED: Sulfamethoxazole/Trimethoprim 800-160 MG Tab PO SCH (21:00)
[2017-01-13] MEDS: Acetaminophen 500 MG Tab PO PRN ×3 (03:21→20:14)
[2017-01-13] MEDS ORDERED: Omeprazole 20 MG Cap.CR PO SCH (07:30)
[2017-01-13] MEDS: Omeprazole 20 MG Cap.CR PO SCH (07:35)
[2017-01-13] MEDS ORDERED: predniSONE 20 MG Tab PO SCH (08:00)
[2017-01-13] MEDS: Cholecalciferol (Vitamin D3) 1,000 Unit Tab PO SCH (08:19)
[2017-01-13] MEDS: Citalopram 20 MG Tab PO SCH (08:20)
[2017-01-13] MEDS: Sulfamethoxazole/Trimethoprim 800-160 MG Tab PO SCH ×2 (08:20→20:14)
[2017-01-13] MEDS: Aspirin 81 MG Tab.EC PO SCH (08:20)
[2017-01-13] MEDS: Multivitamins with Minerals/Iron/Folic Acid/Lycopene Tab PO SCH (08:20)
[2017-01-13] MEDS: Metoprolol Tartrate 25 MG Tab PO SCH ×2 (08:22→20:13)
[2017-01-13] MEDS: Nicotine 21 MG/24 Hr Patch TOP SCH (08:24)
[2017-01-13] MEDS: Arformoterol 15 MCG/2 ML Neb Soln INH SCH ×2 (08:35→20:12)
[2017-01-13] MEDS ORDERED: Non-Formulary Medication 1 Each (Citalopram Hydrobromide [Citalopram Hbr] 20 MG) PO SCH (09:00)
[2017-01-13] MEDS ORDERED: Cholecalciferol (Vitamin D3) 1,000 Unit Tab PO SCH (09:00)
[2017-01-13] MEDS ORDERED: Aspirin 81 MG Tab.Chew PO SCH (09:00)
[2017-01-13] MEDS ORDERED: [UNRECOGNIZED DRUG - OTHER] PO SCH (09:00)
[2017-01-13] MEDS ORDERED: Nicotine 21 MG/24 Hr Patch TOP SCH (09:00)
[2017-01-13] MEDS: Budesonide 0.5 MG/2 ML Neb Susp INH SCH ×2 (09:16→20:12)
[2017-01-13] MEDS ORDERED: Furosemide 40 MG/4 ML VIAL IVPUSH ONE (12:12)
[2017-01-13] MEDS: traZODone 50 MG Tab PO SCH (20:14)
[2017-01-13] MEDS: atorvaSTATin 40 MG Tab PO SCH (20:14)
[2017-01-13] MEDS: Pregabalin 100 MG Cap PO SCH (20:17)
[2017-01-14] MEDS: Acetaminophen 500 MG Tab PO PRN ×2 (07:17→20:10)
[2017-01-14] MEDS: Omeprazole 20 MG Cap.CR PO SCH (07:17)
[2017-01-14] MEDS: Multivitamins with Minerals/Iron/Folic Acid/Lycopene Tab PO SCH (08:15)
[2017-01-14] MEDS: Aspirin 81 MG Tab.EC PO SCH (08:15)
[2017-01-14] MEDS: Sulfamethoxazole/Trimethoprim 800-160 MG Tab PO SCH ×2 (08:15→20:09)
[2017-01-14] MEDS: Citalopram 20 MG Tab PO SCH (08:16)
[2017-01-14] MEDS: Nicotine 21 MG/24 Hr Patch TOP SCH (08:16)
[2017-01-14] MEDS: Cholecalciferol (Vitamin D3) 1,000 Unit Tab PO SCH (08:16)
[2017-01-14] MEDS: Metoprolol Tartrate 25 MG Tab PO SCH ×2 (08:19→20:09)
[2017-01-14] MEDS: Arformoterol 15 MCG/2 ML Neb Soln INH SCH ×2 (08:29→20:01)
[2017-01-14] MEDS: Budesonide 0.5 MG/2 ML Neb Susp INH SCH ×2 (08:49→20:01)
[2017-01-14] MEDS: traZODone 50 MG Tab PO SCH (20:09)
[2017-01-14] MEDS: Pregabalin 100 MG Cap PO SCH (20:09)
[2017-01-14] MEDS: atorvaSTATin 40 MG Tab PO SCH (20:09)
[2017-01-15] MEDS: Arformoterol 15 MCG/2 ML Neb Soln INH SCH ×2 (08:40→20:07)
[2017-01-15] MEDS: Nicotine 21 MG/24 Hr Patch TOP SCH (09:05)
[2017-01-15] MEDS: Acetaminophen 500 MG Tab PO PRN ×2 (09:07→16:11)
[2017-01-15] MEDS: Metoprolol Tartrate 25 MG Tab PO SCH ×2 (09:09→20:12)
[2017-01-15] MEDS: Citalopram 20 MG Tab PO SCH (09:10)
[2017-01-15] MEDS: Aspirin 81 MG Tab.EC PO SCH (09:10)
[2017-01-15] MEDS: Omeprazole 20 MG Cap.CR PO SCH (09:10)
[2017-01-15] MEDS: Multivitamins with Minerals/Iron/Folic Acid/Lycopene Tab PO SCH (09:10)
[2017-01-15] MEDS: Cholecalciferol (Vitamin D3) 1,000 Unit Tab PO SCH (09:10)
[2017-01-15] MEDS: Budesonide 0.5 MG/2 ML Neb Susp INH SCH ×3 (09:35→20:36)
[2017-01-15 09:40] LABS: CHLORIDE,CL 104 mmol/L (98-115); SODIUM,NA 143 mmol/L (136-145)
[2017-01-15] MEDS: Lisinopril 5 MG Tab PO SCH (10:37)
[2017-01-15] MEDS: atorvaSTATin 40 MG Tab PO SCH (20:10)
[2017-01-15] MEDS: Pregabalin 100 MG Cap PO SCH (20:10)
[2017-01-15] MEDS: traZODone 50 MG Tab PO SCH (20:11)
[2017-01-16] MEDS: Acetaminophen 500 MG Tab PO PRN ×2 (00:49→07:57)
[2017-01-16] MEDS: Omeprazole 20 MG Cap.CR PO SCH (07:57)
[2017-01-16] MEDS: Citalopram 20 MG Tab PO SCH (08:00)
[2017-01-16] MEDS: Multivitamins with Minerals/Iron/Folic Acid/Lycopene Tab PO SCH (08:00)
[2017-01-16] MEDS: Nicotine 21 MG/24 Hr Patch TOP SCH (08:00)
[2017-01-16] MEDS: Aspirin 81 MG Tab.EC PO SCH (08:01)
[2017-01-16] MEDS: Cholecalciferol (Vitamin D3) 1,000 Unit Tab PO SCH (08:01)
[2017-01-16] MEDS: Arformoterol 15 MCG/2 ML Neb Soln INH SCH ×2 (09:06→21:15)
[2017-01-16] MEDS: Budesonide 0.5 MG/2 ML Neb Susp INH SCH ×2 (09:39→21:16)
[2017-01-16] MEDS: Lisinopril 5 MG Tab PO SCH (09:53)
[2017-01-16] MEDS: Metoprolol Tartrate 25 MG Tab PO SCH ×2 (09:55→21:14)
[2017-01-16] MEDS ORDERED: Ketoprofen 12 GM, Menthol 1.8 GM, Trolamine Salicylate/Aloe Vera 46.2 GM TOP PRN ×6 (12:05→13:46)
[2017-01-16] MEDS: Acetaminophen 500 MG Tab PO SCH ×2 (16:59→23:05)
[2017-01-16] MEDS: Pregabalin 100 MG Cap PO SCH (21:12)
[2017-01-16] MEDS: atorvaSTATin 40 MG Tab PO SCH (21:13)
[2017-01-16] MEDS: traZODone 50 MG Tab PO SCH (21:13)
[2017-01-17] MEDS: Acetaminophen 500 MG Tab PO SCH ×4 (04:59→22:57)
[2017-01-17] MEDS: Omeprazole 20 MG Cap.CR PO SCH (07:38)
[2017-01-17] MEDS: Multivitamins with Minerals/Iron/Folic Acid/Lycopene Tab PO SCH (09:07)
[2017-01-17] MEDS: Citalopram 20 MG Tab PO SCH (09:07)
[2017-01-17] MEDS: Arformoterol 15 MCG/2 ML Neb Soln INH SCH ×2 (09:07→20:07)
[2017-01-17] MEDS: Metoprolol Tartrate 25 MG Tab PO SCH ×2 (09:08→20:33)
[2017-01-17] MEDS: Lisinopril 5 MG Tab PO SCH (09:08)
[2017-01-17] MEDS: Aspirin 81 MG Tab.EC PO SCH (09:08)
[2017-01-17] MEDS: Nicotine 21 MG/24 Hr Patch TOP SCH (09:09)
[2017-01-17] MEDS: Cholecalciferol (Vitamin D3) 1,000 Unit Tab PO SCH (09:09)
[2017-01-17] MEDS: Budesonide 0.5 MG/2 ML Neb Susp INH SCH ×2 (10:30→20:47)
[2017-01-17] MEDS: Ketoprofen 12 GM, Menthol 1.8 GM, Trolamine Salicylate/Aloe Vera 46.2 GM TOP SCH ×9 (10:33→22:58)
--- NOTE | 2017-01-17 11:50 | PCM.SN ---
- Free Text/Narrative Note: S: Patient reports posterior headache with radiation to the forehead along with neck ache. This is not new and similar to prior headaches. Denies nausea. Patient states she had been taking 2 tablets of ibuprofen and 2-3 tablets of ibuprofen for the last 20 years for headaches. She feels the tylenol isn't helping, but the analgesic rub did help some. O: No cervical spine tenderness elicited. Bilateral trapezius spasm and tenderness elicited. A: Acute on chronic headaches, most likely tension-type and related to neck tension. P: Schedule analgesic rub TID and continue tylenol QID. No NSAIDs due to recent IA and history of hemorrhagic shock. Will continue to monitor.
[2017-01-17] MEDS: atorvaSTATin 40 MG Tab PO SCH (20:31)
[2017-01-17] MEDS: traZODone 50 MG Tab PO SCH (20:32)
[2017-01-17] MEDS: Pregabalin 100 MG Cap PO SCH (20:32)
[2017-01-18] MEDS: Acetaminophen 500 MG Tab PO SCH ×4 (05:11→21:59)
[2017-01-18] MEDS: Omeprazole 20 MG Cap.CR PO SCH (07:52)
[2017-01-18] MEDS: Citalopram 20 MG Tab PO SCH (09:39)
[2017-01-18] MEDS: Arformoterol 15 MCG/2 ML Neb Soln INH SCH ×2 (09:39→20:42)
[2017-01-18] MEDS: Nicotine 21 MG/24 Hr Patch TOP SCH (09:40)
[2017-01-18] MEDS: Multivitamins with Minerals/Iron/Folic Acid/Lycopene Tab PO SCH (09:40)
[2017-01-18] MEDS: Metoprolol Tartrate 25 MG Tab PO SCH ×2 (09:41→20:42)
[2017-01-18] MEDS: Aspirin 81 MG Tab.EC PO SCH (09:41)
[2017-01-18] MEDS: Cholecalciferol (Vitamin D3) 1,000 Unit Tab PO SCH (09:41)
[2017-01-18] MEDS: Lisinopril 5 MG Tab PO SCH (09:41)
[2017-01-18] MEDS: Ketoprofen 12 GM, Menthol 1.8 GM, Trolamine Salicylate/Aloe Vera 46.2 GM TOP SCH ×9 (09:42→20:04)
[2017-01-18] MEDS: Budesonide 0.5 MG/2 ML Neb Susp INH SCH ×2 (10:11→20:42)
[2017-01-18] MEDS: Nitrofurantoin Monohydrate/Macrocrystalline 100 MG Cap PO SCH ×2 (14:03→20:40)
[2017-01-18] MEDS: Pregabalin 100 MG Cap PO SCH (20:40)
[2017-01-18] MEDS: traZODone 50 MG Tab PO SCH (20:40)
[2017-01-18] MEDS: atorvaSTATin 40 MG Tab PO SCH (20:40)
[2017-01-19] MEDS: Acetaminophen 500 MG Tab PO SCH ×4 (05:02→22:00)
[2017-01-19] MEDS: Omeprazole 20 MG Cap.CR PO SCH (07:41)
[2017-01-19] MEDS: Nicotine 21 MG/24 Hr Patch TOP SCH (08:14)
[2017-01-19] MEDS: Multivitamins with Minerals/Iron/Folic Acid/Lycopene Tab PO SCH (08:15)
[2017-01-19] MEDS: Nitrofurantoin Monohydrate/Macrocrystalline 100 MG Cap PO SCH ×2 (08:16→20:09)
[2017-01-19] MEDS: Aspirin 81 MG Tab.EC PO SCH (08:16)
[2017-01-19] MEDS: Citalopram 20 MG Tab PO SCH (08:16)
[2017-01-19] MEDS: Cholecalciferol (Vitamin D3) 1,000 Unit Tab PO SCH (08:17)
[2017-01-19] MEDS: Lisinopril 5 MG Tab PO SCH (08:19)
[2017-01-19] MEDS: Metoprolol Tartrate 25 MG Tab PO SCH (08:19)
[2017-01-19] MEDS: Ketoprofen 12 GM, Menthol 1.8 GM, Trolamine Salicylate/Aloe Vera 46.2 GM TOP SCH ×9 (08:20→21:59)
[2017-01-19] MEDS: Arformoterol 15 MCG/2 ML Neb Soln INH SCH ×2 (09:04→20:08)
[2017-01-19] MEDS: Budesonide 0.5 MG/2 ML Neb Susp INH SCH ×2 (09:39→20:09)
[2017-01-19] MEDS: Nicotine 14 MG/24 Hr Patch TRDERM SCH (09:52)
[2017-01-19] MEDS: Phenazopyridine 100 MG Tab PO SCH ×3 (09:52→20:09)
[2017-01-19 10:12] LABS: CHLORIDE,CL 104 mmol/L (98-115); SODIUM,NA 142 mmol/L (136-145)
--- NOTE | 2017-01-19 10:37 | PCM.PN ---
- General Info Date of Service: 01/19/17 Functional Status: Reports: Tolerating Diet, Ambulating, Urinating (frequently) , New Symptoms (gained 6 pounds overnight). Denies: Pain Controlled - Review of Systems HEENT: Reports: Headaches (starts at base of neck and radiates to top of head). Denies: Visual Changes Pulmonary: Denies: Shortness of Breath Cardiovascular: Denies: Chest Pain, Edema Gastrointestinal: Denies: Abdominal Pain, Constipation, Decreased Appetite, Nausea, Vomiting Genitourinary: Reports: Frequency. Denies: Dysuria Musculoskeletal: Denies: Neck Pain Neurological: Reports: Headache Systems Review Comment:: Patient reports that she went from yesterday morning after the analgesic rub was applied to her neck until last night around 7:30 pm without a headache. The patient states that when she was at home she was wearing the nicotine 21 mg patch and smoking. She has not had a cigarette in 3 weeks now. She also reports that she would drink around 6 cups of coffee per day prior to hospitalization. She has not been drinking any coffee. She state she doesn't want to start back up as it is expensive. The patient is concerned that she gained 6 pounds in 1 day. She denies any symptoms of this. She has received lasix IV and oral throughout her hospital stay, but nothing routinely. - Patient Data Vitals - Most Recent: Last Vital Signs Temp 98.0 F 01/19/17 06:49 Pulse 88 01/19/17 09:39 Resp 20 01/19/17 06:49 BP 132/63 01/19/17 08:19 Pulse Ox 97 01/19/17 09:39 Weight - Most Recent: 186 lb I&O - Last 24 Hours: Intake & Output 01/18/17 01/19/17 01/19/17 22:59 06:59 14:59 Intake Total 240 200 Output Total 500 900 Balance -260 -700 Lab Results Last 24 Hours: Laboratory Results - last 24 hr 01/18/17 01/19/17 01/19/17 Range/Units 12:35 09:35 09:35 WBC 4.1 L (5.0-10.0) 10^3/uL RBC 5.26 (3.80-5.50) 10^6/uL Hgb 16.1 H (12.0-16.0) g/dL Hct 49.6 H (37.0-47.0) % MCV 94.3 H (82.0-92.0) fL MCH 30.6 (27.0-31.0) pg MCHC 32.4 (32.0-36.0) g/dL RDW 13.7 (11.5-14.5) % Plt Count 88 L (150-300) 10^3/uL MPV 9.3 (7.4-10.4) fL Neut % (Auto) 63.5 (50.0-70.0) % Lymph % (Auto) 24.8 (20.0-40.0) % [place] % (Auto) 8.3 H (2.0-8.0) % Eos % (Auto) 2.4 (1.0-3.0) % Baso % (Auto) 1.0 (0.0-1.0) % Neut # (Auto) 2.7 (2.5-7.0) 10^3/uL Lymph # (Auto) 1.0 (1.0-4.0) 10^3/uL [place] # (Auto) 0.3 (0.1-0.8) 10^3/uL Eos # (Auto) 0.1 (0.1-0.3) 10^3/uL Baso # (Auto) 0.0 (0.0-0.1) 10^3/uL Sodium 142 (136-145) mmol/L Potassium 5.1 (3.3-5.3) mmol/L Chloride 104 (98-115) mmol/L Carbon Dioxide 35.0 H (21.0-32.0) mmol/L BUN 21 (6-25) mg/dL Creatinine 0.47 L (0.51-1.17) mg/dL Est Cr Clr Drug Dosing 123.78 mL/min Estimated GFR (MDRD) > 60 mL/min Glucose 163 H (70-110) mg/dL Calcium 11.2 H (8.7-10.3) mg/dL Specimen Type Urincc Urine Color Yellow (YELLOW) Urine Appearance Slightly cloudy H (CLEAR) Urine pH 5.5 (5.0-9.0) Ur Specific [place] 1.025 (1.005-1.030) Urine Protein Trace H (NEGATIVE) mg/dL Urine Glucose (UA) Negative (NEGATIVE) mg/dL Urine Ketones Trace H (NEGATIVE) mg/dL Urine Occult Blood Trace-intact H (NEGATIVE) Urine Nitrite Negative (NEGATIVE) Urine Bilirubin Small H (NEGATIVE) Urine Urobilinogen 1.0 (0.2-1.0) E.U./dL Ur Leukocyte Esterase Small H (NEGATIVE) Urine RBC 0-5 /HPF Urine WBC 20-30 H /HPF Ur Epithelial Cells Moderate H /LPF Urine Bacteria Moderate H (NONE TO FEW) /HPF Med Orders - Current: Current Medications Acetaminophen (Tylenol Extra Strength) 1,000 mg PO 0500,1100,1700,2300 [facility] Last Admin: 01/19/17 05:02 Dose: 1,000 mg Arformoterol Tartrate (Brovana) 15 mcg INH BID [facility] Last Admin: 01/19/17 09:04 Dose: 15 mcg Aspirin (Halfprin) 81 mg PO DAILY [facility] Last Admin: 01/19/17 08:16 Dose: 81 mg Atorvastatin Calcium (Lipitor) 40 mg PO BEDTIME [facility] Last Admin: 01/18/17 20:40 Dose: 40 mg Budesonide (Pulmicort) 0.5 mg INH BID [facility] Last Admin: 01/19/17 09:39 Dose: 0.5 mg Cholecalciferol (Vitamin D3) 2,000 units PO DAILY [facility] Last Admin: 01/19/17 08:17 Dose: 2,000 units Citalopram Hydrobromide (Celexa) 20 mg PO DAILY [facility] Last Admin: 01/19/17 08:16 Dose: 20 mg Ketoprofen 12 gm/ Menthol 1.8 gm/ Trolamine Salicylate 46.2 gm 0 gm TOP TID [facility] Last Admin: 01/19/17 08:20 Dose: 1 harjit Furosemide (Lasix) 40 mg PO DAILY [facility] Ipratropium [place] (Atrovent) 0.5 mg INH QID PRN PRN Reason: Wheezing Lisinopril (Prinivil) 5 mg PO DAILY [facility] Last Admin: 01/19/17 08:19 Dose: 5 mg Metoprolol Succinate (Toprol Xl) 25 mg PO DAILY [facility] Multivitamins/Minerals (Centrum) 1 tab PO DAILY [facility] Last Admin: 01/19/17 08:15 Dose: 1 tab Nicotine (Habitrol) 14 mg TRDERM DAILY [facility] Last Admin: 01/19/17 09:52 Dose: 14 mg Nitrofurantoin Macrocrystals (Macrobid) 100 mg PO BID [facility] Last Admin: 01/19/17 08:16 Dose: 100 mg Omeprazole (Omeprazole) 20 mg PO ACBREAKFAST [facility] Last Admin: 01/19/17 07:41 Dose: 20 mg Phenazopyridine HCl (Pyridium) 100 mg PO TID [facility] Stop: 01/20/17 23:00 Last Admin: 01/19/17 09:52 Dose: 100 mg Pregabalin (Lyrica) 200 mg PO BEDTIME [facility] Last Admin: 01/18/17 20:40 Dose: 200 mg Trazodone HCl (Trazodone) 50 mg PO BEDTIME [facility] Last Admin: 01/18/17 20:40 Dose: 50 mg Discontinued Medications Acetaminophen (Tylenol Extra Strength) 1,000 mg PO Q6H PRN PRN Reason: Pain Last Admin: 01/16/17 07:57 Dose: 1,000 mg Atorvastatin Calcium (Lipitor) 40 mg PO BEDTIME [facility] Budesonide (Pulmicort) 0.5 mg INH BID [facility] Cholecalciferol (Vitamin D3) 2,000 units PO DAILY [facility] Ketoprofen 12 gm/ Menthol 1.8 gm/ Trolamine Salicylate 46.2 gm 0 gm TOP 0900, 1600,2200 PRN PRN Reason: Headache Ketoprofen 12 gm/ Menthol 1.8 gm/ Trolamine Salicylate 46.2 gm 0 gm TOP TID PRN PRN Reason: Headache Last Admin: 01/16/17 23:07 Dose: 1 harjit Furosemide (Lasix) 20 mg IVPUSH NOW ONE Stop: 01/13/17 12:13 Last Admin: 01/13/17 14:05 Dose: 20 mg Ipratropium [place] (Atrovent) 0.5 mg INH QID PRN PRN Reason: Wheezing Metoprolol Tartrate (Lopressor) 12.5 mg PO BID [facility] Last Admin: 01/19/17 08:19 Dose: 12.5 mg Metoprolol Tartrate (Lopressor) 12.5 mg PO BID [facility] Morphine Sulfate (Morphine) 1 mg IVPUSH ONETIME ONE Stop: 01/12/17 17:27 Last Admin: 01/12/17 17:34 Dose: Not Given Morphine Sulfate (Morphine) 1 mg IM ONETIME ONE Stop: 01/12/17 17:31 Last Admin: 01/12/17 18:06 Dose: 1 mg Naproxen (Naproxen Sodium) 440 mg PO ONETIME [facility] Stop: 01/16/17 13:00 Last Admin: 01/16/17 12:32 Dose: 440 mg Nicotine (Habitrol) 21 mg TOP DAILY [facility] Last Admin: 01/19/17 08:14 Dose: 21 mg Nicotine (Habitrol) 21 mg TOP DAILY [facility] Non-Formulary Medication (Citalopram Hydrobromide [Citalopram Hbr]) 20 mg PO DAILY [facility] Non-Formulary Medication (Multivits W-Fe,Other Min/Lut [Theratrum Complete]) 1 tab PO DAILY [facility] Non-Formulary Medication (Pregabalin) 200 mg PO 2100 [facility] Omeprazole (Omeprazole) 20 mg PO ACBREAKFAST [facility] Prednisone (Prednisone) 60 mg PO WITHBREAKFAST [facility] Trazodone HCl (Trazodone) 50 mg PO BEDTIME [facility] Trimethoprim/Sulfamethoxazole (Septra Ds) 1 tab PO BID [facility] Stop: 01/14/17 21:00 Last Admin: 01/14/17 20:09 Dose: 1 tab Trimethoprim/Sulfamethoxazole (Septra Ds) 1 tab PO BID [facility] Stop: 01/14/17 21:00 - Exam Quality Assessment: Supplemental Oxygen (3.5 liters per nasal cannula-this is her baseline), DVT Prophylaxis (None-patient has refused SCDs and Nathaniel stockings) . No: Urine Catheter General: Alert, Oriented, Cooperative, No Acute Distress Neck: Other (trapezius muscle spasms palpated bilaterally; full active ROM of neck) Lungs: Clear to Auscultation, Normal Respiratory Effort Cardiovascular: Regular Rate, Regular Rhythm, No Murmurs GI/Abdominal Exam: Normal Bowel Sounds, Soft, Non-Tender, No Distention Extremities: Other (trace edema to BLE) Skin: Warm, Dry Neurological: Normal Speech Psy/Mental Status: Alert, Normal Affect, Normal Mood. No: Anxious, Depressed - Problem List Review Problem List Initiated/Reviewed/Updated: Yes - My Orders Last 24 Hours: My Active Orders 01/18/17 12:35 CULTURE URINE [RM] Routine 01/18/17 13:45 Nitrofurantoin [place]/Macrocryst [Macrobid] 100 mg PO BID 01/19/17 09:30 Nicotine [Habitrol] 14 mg TRDERM DAILY Phenazopyridine [Pyridium] 100 mg PO TID 01/19/17 10:30 PTH INTACT, WM, NO CALCIUM [REF] Routine VITAMIN D 25-HYROXY (D2, D3) [REF] Routine Furosemide [Lasix] 40 mg PO DAILY 01/20/17 09:00 Metoprolol Succinate [Toprol XL] 25 mg PO DAILY - Plan Plan:: HPI: This is a 61 year old patient who was admitted to acute care on 01/08/17 from the ER due to NSTEMI. She initially presented with generalized weakness, increased shortness of breath, and recurrent falls. The patient was discharged to [facility] to improve her physical deconditioning as well as for respiratory rehabilitation. The patient has a complex past medical history. She was hospitalized August 2016 for a NSTEMI that was complicated by hemorrhagic shock due to a left retroperitoneal hematoma that had developed while she was on Lovenox. She then had a prolonged stay with a tracheostomy due to ARDs. Her past medication history is significant for diastolic heart failure, COPD, chronic hypoxic respiratory failure, and depression. Primary assessment/plan: UTI, symptomatic, recurrent. UA obtained yesterday revealed trace blood and moderate bacteria. Urine culture pending. Patient had been on bactrim DS prior. She was initiated on macrobid 100 mg po BID. Add pyridium 100 mg po TID x 2 days , then stop. Acute on chronic headache. Patient reported that she typically would take ibuprofen 400 in the AM and 400-600 mg in the evening at home with relief of her headaches. NSAIDs contraindicated due to recent NSTEMI. Continue scheduled tylenol and analgesic rub. This could be from nicotine versus caffeine versus arthritic component. Decrease nicotine patch today. Patient denies caffeine at this time. Will continue to monitor. Hypercalcemia. Calcium elevated at 11.2. Not on oral calcium, but on oral vitamin D. Will obtain PTH and vitamin D levels today. Chronic diastolic heart failure. Patient gained 6 pounds in 24 hours. BUN 21, creatinine 0.47, GFR >60, potassium 5.1. Add lasix 40 mg daily. Continue daily weights. Bradycardia. Changed lopressor to toprol XL 25 mg po daily. NSTEMI. Continue aspirin and statin. No ACEI at this time as BPs are controlled. Patient bradycardic mainly in evenings so adjusted lopressor to toprol XL. She will need outpatient stress test. Acute on chronic debilitation. Continue with physical therapy. Chronic hypoxic respiratory failure and respiratory acidosis. Continue with baseline oxygen of 3.5 liters per nasal cannula. Continue inhaled treatments and with respiratory therapy rehabilitation. Thrombocytopenia. Platelets down to 88. No evidence of bleeding. Most likely related to current infection. Hepatitis C nonreactive. HIV negative. Repeat CBC in 2 days. Macrocytosis. Hemoglobin 16.1, hematocrit 49.6. History of alcoholism. Folate > 22.0. B12 472. Hypernatremia, resolved. Sodium 142. Recent history of hyperbilirubinemia. Repeat CMP in 2 days to assess. Secondary assessment/plan: COPD, improving. Continue current inhaled regimen. Continue oxygen. GERD, stable. Continue omeprazole. Osteopenia. Continue vitamin D supplementation at this time pending results of vitamin d level. Calcium previously discontinued due to hypercalcemia. Peripheral neuropathy, stable. Continue lyrica. Depression, stable. Continue celexa. Insomnia, stable. Continue trazodone. Tobacco abuse. Patient has not had a cigarette for 3 weeks. Decrease nicotine patch to 14 mg daily. DVT prophylaxis. Patient up and moving. She has refused SCDs and Nathaniel stockings, so these were discontinued.
[2017-01-19] MEDS: Furosemide 40 MG Tab PO SCH (10:48)
[2017-01-19] MEDS: atorvaSTATin 40 MG Tab PO SCH (20:08)
[2017-01-19] MEDS: Pregabalin 100 MG Cap PO SCH (20:09)
[2017-01-19] MEDS: traZODone 50 MG Tab PO SCH (20:09)
[2017-01-20] MEDS: Acetaminophen 500 MG Tab PO SCH ×4 (05:47→22:03)
[2017-01-20] MEDS: Omeprazole 20 MG Cap.CR PO SCH (07:45)
[2017-01-20] MEDS: Phenazopyridine 100 MG Tab PO SCH ×3 (08:16→20:21)
[2017-01-20] MEDS: Multivitamins with Minerals/Iron/Folic Acid/Lycopene Tab PO SCH (08:17)
[2017-01-20] MEDS: Cholecalciferol (Vitamin D3) 1,000 Unit Tab PO SCH (08:17)
[2017-01-20] MEDS: Aspirin 81 MG Tab.EC PO SCH (08:18)
[2017-01-20] MEDS: Citalopram 20 MG Tab PO SCH (08:18)
[2017-01-20] MEDS: Nitrofurantoin Monohydrate/Macrocrystalline 100 MG Cap PO SCH ×2 (08:18→20:21)
[2017-01-20] MEDS: Furosemide 40 MG Tab PO SCH (08:18)
[2017-01-20] MEDS: Lisinopril 5 MG Tab PO SCH (08:19)
[2017-01-20] MEDS: Nicotine 14 MG/24 Hr Patch TRDERM SCH (08:19)
[2017-01-20] MEDS: Ketoprofen 12 GM, Menthol 1.8 GM, Trolamine Salicylate/Aloe Vera 46.2 GM TOP SCH ×9 (08:20→22:04)
[2017-01-20] MEDS: Metoprolol Succinate 25 MG Tab.ER PO SCH (08:23)
[2017-01-20] MEDS: Arformoterol 15 MCG/2 ML Neb Soln INH SCH ×2 (08:43→20:20)
[2017-01-20] MEDS: Budesonide 0.5 MG/2 ML Neb Susp INH SCH ×2 (09:09→20:20)
[2017-01-20] MEDS: atorvaSTATin 40 MG Tab PO SCH (20:21)
[2017-01-20] MEDS: traZODone 50 MG Tab PO SCH (20:21)
[2017-01-20] MEDS: Pregabalin 100 MG Cap PO SCH (20:23)
[2017-01-21] MEDS: Acetaminophen 500 MG Tab PO SCH (05:07)
[2017-01-21 06:54] VITALS: BP 119/61
[2017-01-21] MEDS: Omeprazole 20 MG Cap.CR PO SCH (07:21)
[2017-01-21 07:42] LABS: CHLORIDE,CL 104 mmol/L (98-115); SODIUM,NA 143 mmol/L (136-145)
[2017-01-21] MEDS: Metoprolol Succinate 25 MG Tab.ER PO SCH (08:31)
[2017-01-21] MEDS: Aspirin 81 MG Tab.EC PO SCH (08:32)
[2017-01-21] MEDS: Cholecalciferol (Vitamin D3) 1,000 Unit Tab PO SCH (08:32)
[2017-01-21] MEDS: Multivitamins with Minerals/Iron/Folic Acid/Lycopene Tab PO SCH (08:33)
[2017-01-21] MEDS: Nitrofurantoin Monohydrate/Macrocrystalline 100 MG Cap PO SCH (08:33)
[2017-01-21] MEDS: Furosemide 40 MG Tab PO SCH (08:33)
[2017-01-21] MEDS: Citalopram 20 MG Tab PO SCH (08:33)
[2017-01-21] MEDS: Lisinopril 5 MG Tab PO SCH (08:34)
[2017-01-21] MEDS: Nicotine 14 MG/24 Hr Patch TRDERM SCH (08:34)
[2017-01-21] MEDS: Arformoterol 15 MCG/2 ML Neb Soln INH SCH (08:52)
[2017-01-21] MEDS: Budesonide 0.5 MG/2 ML Neb Susp INH SCH (09:39)
[2017-01-21] MEDS: Ketoprofen 12 GM, Menthol 1.8 GM, Trolamine Salicylate/Aloe Vera 46.2 GM TOP SCH ×3 (09:47)
--- NOTE | 2017-01-22 08:21 | DISCH ---
She was admitted into inpatient on 01/08/2017, discharged from inpatient and placed in swing bed on 01/12/2017, and then discharged from swing bed today, 01/21/2017. FINAL DIAGNOSES: 1. Urinary tract infection, symptomatic, changed to Macrobid with possible vancomycin-resistant Enterococcus. 2. Acute on chronic headaches, resolved. 3. Hypercalcemia, improved, likely due to resorption. Vitamin D level normal. 4. Heart failure, diastolic, chronic at her dry weight. We will initiate ALEXANDRE inhibitor, initiated Lasix and potassium. 5. Bradycardia, improved, change Lopressor to Toprol-XL 25 daily. 6. [id number] myocardial infarction, on aspirin and statin, initiated ALEXANDRE inhibitor. 7. Acute on chronic debilitation, she is going to receive home health care. 8. Chronic hypoxia with respiratory failure and respiratory acidosis. She is on home oxygen, this is improved. She can continue with inhaled treatments. 9. Thrombocytopenia. 10.Macrocytosis. 11.Hypernatremia which is resolved. 12.History of hyperbilirubinemia. 13.Chronic obstructive pulmonary disease, she is on home oxygen. 14.Gastroesophageal reflux disease, stable. 15.Osteopenia. 16.Peripheral neuropathy which is stable on Lyrica. 17.Depression, stable. 18.Insomnia, stable, on trazodone. 19.Tobacco abuse, nicotine replacement therapy. HISTORY: Ms. Carreno who is 61 years old with a significant history of diastolic heart failure, COPD, chronic hypoxia respiratory failure with complex past medical history which includes acute hospitalization for STEMI in 08/2016 which was complicated by hemorrhagic shock due to left retroperitoneal hematoma that she developed while on Lovenox followed by a prolonged stay at an LT[facility] with a tracheostomy due to acute respiratory distress syndrome. She was admitted on 01/08/2017 here at [facility] for an elevated troponin. She initially presented with generalized weakness, recurrent falls, increased shortness of breath. She had overall improvement with regard to acute problems, but she became quite weak, and the need for swing bed was a concern due to her weakness and her debilitation, so she was discharged from acute placed in swing bed status for ongoing physical therapy and respiratory rehabilitation here. HOSPITAL COURSE: Hospital course overall went fairly well. She did have a non- STEMI which we continued on aspirin, beta blockers, and statins. We did not initiate ALEXANDRE inhibitors, at that time, her blood pressure was stable, however, upon discharge, she was started on low-dose ALEXANDRE inhibitors, especially since she has heart failure. For heart failure, she did require Lasix during her acute hospitalizations and then periodic during her swing bed stay. She did have volume overload with a pleural effusion on a chest x-ray which responded well to Lasix early on, she diuresed well, losing apparently 11 kg throughout her stay, however, these are questionable due to the hospital scale which this was reported, and they are putting a report through to help calibrate her scale. She did have some chronic hypoxia, so we continued with the respiratory therapy. She remained on oxygen throughout her hospital stay. Her urinary tract infection, she was treated with Bactrim. There was no culture sent early on; however, she did receive three days of ceftriaxone and then changed to Bactrim. However, repeat UA did not show any improvement, even though she was feeling much better when she was started on Pyridium. There was some concern about VRE, so she was started on Macrobid, culture sent to [facility]. However, she had no flank pain. No fever. No chills. No diaphoresis or vomiting. She did have some mild hypernatremia, this was improved with overall Lasix. She did work with physical therapy to improve her strength, she did quite well on this. She did have ongoing headaches the last couple of days prior to discharge, even though was improved on discharge, it was actually resolved on discharge. We did decrease her nicotine patch, given some nonsteroidal cream and some Tylenol which did resolve this. She did have some peripheral neuropathy. We continued on Lyrica. We continue on Celexa for her depression. She is in the precontemplative stage of change. She will be given tobacco nicotine patch on discharge. LABORATORY DATA: Recent labs dated 01/21/2017: White count 4.3, hemoglobin 15.7, hematocrit 48.1. Sodium and potassium are normal. BUN 26, creatinine 0.49, calcium 10.8, total bilirubin 1.1. AST and ALT are normal. Vitamin D normal at 39. Albumin 3.82. Microbiology: Urine culture sent to [facility] lab for possible VRE. Dry weight 177. PHYSICAL EXAM ON DISCHARGE: VITAL SIGNS: Blood pressure 119/61, heart rate 84, O2 sats 96% on 3 L nasal cannula. LUNGS: Clear to auscultation. CARDIOVASCULAR: Regular rate and rhythm. Negative for CVA tenderness. ABDOMEN: Negative for any abdominal tenderness. Bowel tones are good. EXTREMITIES: Very little edema, pedal edema. MEDICATION ADJUSTMENTS/DELETIONS OR ADDITIONS ON DISCHARGE: 1. Macrobid 100 mg p.o. b.i.d. x6 more days. 2. Toprol-XL 50 mg p.o. daily. 3. Lasix 20 mg p.o. daily, newly added. DISPOSITION: The patient will be discharged from the hospital. She will receive nursing physical therapy and occupational therapy due to potential for rehospitalization is high due to her severe debilitation state, her history of ARDS, and respiratory failure. She will continue with home oxygen. At home, please help develop an in-home therapy program to help prevent readmission. She has multiple disease processes that presents her for high risk. She is high- risk for rehospitalization. She is homebound due to limited endurance due to her severe respiratory hypoxia and she experiences shortness of breath with minimal activities. RECOMMENDATIONS AT FOLLOWUP: Assess smoking cessation. Nicotine patch given. Assess potassium since ALEXANDRE inhibitor added. Consider outpatient stress test since recent non-STEMI. Assess [facility] culture urine for possible VRE. Assess weight, CMP, CBC. The patient will follow up with Dr. Wanda Lisa next week. The patient is to report any signs and symptoms of worsening condition as stated and as directed. MEDICAL DECISION MAKIN minutes was spent on this discharge planning process, care coordination, pharmacy, and social work specialist. /[id number]/MODL MTDD
== END 2017-01-21 11:15 | disposition home or self-care (01) | DRG 689 ==
LOC: KA.MS 09:46
PROVIDERS: ADMIT Family Medicine; ATTEND Family Medicine
DX: N39.0 Urinary tract infection, site not specified (principal); I21.4 Non-ST elevation (NSTEMI) myocardial infarction; J96.91 Respiratory failure, unspecified with hypoxia; I50.32 Chronic diastolic (congestive) heart failure; E87.2 Acidosis; E87.0 Hyperosmolality and hypernatremia; J90 Pleural effusion, not elsewhere classified; R51 Headache; E83.52 Hypercalcemia; R00.1 Bradycardia, unspecified; R53.81 Other malaise; D69.6 Thrombocytopenia, unspecified; D75.89 Other specified diseases of blood and blood-forming organs; J44.9 Chronic obstructive pulmonary disease, unspecified; K21.9 Gastro-esophageal reflux disease without esophagitis; M85.80 Other specified disorders of bone density and structure, unspecified site; G62.9 Polyneuropathy, unspecified; F32.9 Major depressive disorder, single episode, unspecified; G47.00 Insomnia, unspecified; E21.3 Hyperparathyroidism, unspecified; F17.200 Nicotine dependence, unspecified, uncomplicated; Z88.0 Allergy status to penicillin; Z99.81 Dependence on supplemental oxygen; Z79.899 Other long term (current) drug therapy; Z86.73 Personal history of transient ischemic attack (TIA), and cerebral infarction without residual deficits
CPT/HCPCS: 36415; 51798; 80048; 80053; 81001; 82306; 83970; 84484; 85025; 87086; 87088; 93005; 94640; 94640-76; 97110-GP; 97162-GP; A9270-GY; J1940; J2270